=== PATIENT | female | born 1940 | race Caucasian/White ===

== ENCOUNTER 2017-03-28 09:09 | Inpatient (IN) | payer MEDICARE ==
--- NOTE | 2017-03-28 12:23 | History & Physical ---
History of Present Illness - Date Date of Service for History & Physical: 03/28/17 - History of Present Illness Admitting Diagnosis: S/P total right hip arthroplasty History of Present Illness: 76 y/o female with history of right hip degenerative arthritis underwent right total hip arthroplasty 03/24/17. Other significant medical history includes DM-2 , HTN, GERD, OA both hips. Will plan for right hip dressing and steri strips to remain in place until 14 days post-op (04/07/17) and DVT prophlaxis with TEDs and Lovenox 40mg daily x 3 weeks. Weight bear as tolerated. Intra- operative and post- operative course uneventful. No previous labs available for review at time of dictation. PT/OT consultation. Follow with orthopedic surgeon Dr Cervantes in 6 weeks. General - Cognitive Patterns Orientation: Oriented x3 - Communication Preferred Language?: Kazakh Contract Specialist Required: No Level of Education: High School Preferred Method of Learning: Seeing, Doing, Reading Comprehension Ability: No Impairment Able to Read: Yes Able to Write: Yes Select best description of speech pattern: Clear Speech Ability to express ideas and wants: Understood Understanding verbal content: Understands - Psychosocial Well-Being Usual Living Arrangement: Alone - Dental Status Unable to examine: No Broken or loosely fitting full or partial dentures: No No natural teeth or tooth fragment(s) (edentulous): No Abnormal mouth tissue (ulcers, masses, oral lesions, etc.): No Obvious or likely cavity or broken natural teeth: No Inflamed or bleeding gums or loose natural teeth: No Mouth/facial pain, discomfort or difficulty chewing: No - Nutrition Screening Poor oral intake > 1 week: No Unplanned weight loss in specified time frame: No Nutrition Support via tube feedings or parenteral nutrition: No Pressure Ulcer: No Significantly underweight define as BMI <18.5 kg/m2: No Albumin <2.5mg/dL: No Persistent nausea/vomiting/diarrhea >3 days: No Difficulty chewing/swallowing/mouth sores: No Admitting Diagnosis: No Nutrition Risk Score: Low Risk Past Medical History - SOCIAL HISTORY Smoking Status: Never smoker Drug use: None - SURGICAL HISTORY Past Surgical History: hysterectomy. tonsilectomy. cholecystectomy. 2 navel surgeries. incarcerated hernia repair - RESPIRATORY Hx Respiratory Disorders: No - CARDIOVASCULAR Hx Cardio Disorders: Yes Hx Hypertension: Yes - NEURO Hx Seizures: No - GI Hx GI Disorders: No - Hx Genitourinary Disorders: No - ENDOCRINE Hx Diabetes: Yes (oral medications) - MUSCULOSKELETAL Hx Musculoskeletal Disorders: Yes Hx Arthritis: Yes - PSYCH Hx Psych Problems: No - HEMATOLOGY/ONCOLOGY Hx Hematology/Oncology Disorders: No Family Medical History Family Hx Comment (NOT TO BE USED IN PLACE OF ITEMS BELOW): "old age" H&P Meds/Allergies - Allergies Allergies: Allergies Allergy/AdvReac Type Severity Reaction Status Date / Time hydrochlorothiazide Allergy Intermediate SWELLING Verified 09/02/15 10:41 OF THE FACE Penicillins Allergy Intermediate PT UNSURE Verified 08/22/15 16:04 OF REACTION Tetracyclines Allergy Intermediate ALTERED Verified 08/22/15 16:04 MENTAL STATUS lisinopril Allergy SWELLING Verified 08/22/15 16:04 OF THE LIPS pentazocine lactate Allergy "my Verified 08/22/15 16:04 [From [place]] eyeballs went around in my head" - Home Medications Previous Rx's Medication Instructions Recorded Furosemide [Lasix] 20 mg PO DAILY #30 tablet 09/26/15 Potassium Chloride [Klor-Con] 20 meq PO DAILY #30 tablet.sa 09/26/15 Metoprolol Succinate [Toprol Xl] 25 mg PO BID #60 tab.er.24h 09/27/15 Physical Exam - Vital Signs Vital Signs: Vital Signs - Last 24 Hrs Temp Pulse Resp BP 03/28/17 11:47 97.2 F L 61 18 145/68 Discharge Potential - Discharge Needs Community Services Used Prior to Admission: None Patient Discharge Plan Description: Return Home Plan - Swing Bed Certification Initial Certification Due: 03/28/17 14 Day Re-Cert Due: 04/11/17 44 Day Re-Cert Due: 05/11/17 74 Day Re-Cert Due: 06/10/17 - Detailed Diagnosis and Plan (1) Physical deconditioning Current Visit: Yes Status: Acute Base Code: R53.81 - OTHER MALAISE Comment : - s/p right hip total arthroplasty 03/24/17 - PT/OT eval and treat - right hip dressing until 14 days post-op - WBAT - [place] for pain (2) Primary osteoarthritis of right hip Current Visit: Yes Status: Acute Base Code: M16.11 - UNILATERAL PRIMARY OSTEOARTHRITIS, RIGHT HIP (3) Hypertension Current Visit: Yes Status: Acute Base Code: I10 - ESSENTIAL (PRIMARY) HYPERTENSION (4) Full code status Current Visit: Yes Status: Acute Base Code: Z78.9 - OTHER SPECIFIED HEALTH STATUS (5) Diabetes type 2, controlled Current Visit: Yes Status: Acute Base Code: E11.9 - TYPE 2 DIABETES MELLITUS WITHOUT COMPLICATIONS
[2017-03-28] MEDS ORDERED: ACETAMINOPHEN 500 MG TABLET PO PRN (12:51)
--- NOTE | 2017-03-28 13:53 | History & Physical ---
History of Present Illness - Date of Service Date of Service for History & Physical: 03/28/17 - History of Present Illness Admitting Diagnosis: S/P total right hip arthroplasty History of Present Illness: patient had right hip replacement at [facility] by Dr. Cervantes and is her for rehab. Review of Systems Reviewed: No additional complaints except as noted below Constitutional: Reports: As per HPI. Denies: Chills, Fever, Malaise, Night sweats, Weakness, Weight change Eyes: Reports: As per HPI. Denies: Eye discharge, Eye pain, Photophobia, Vision change ENT: Reports: As per HPI. Denies: Congestion, Dental pain, Ear pain, Epistaxis , Hearing loss, Throat pain Respiratory: Reports: As per HPI. Denies: Cough, Dyspnea, Hemoptysis, Stridor, Wheezes Cardiovascular: Reports: As per HPI. Denies: Arrhythmia, Chest pain, Dyspnea on exertion, Edema, Murmurs, Orthopnea, Palpitations, Paroxysmal nocturnal dyspnea, Rheumatic Fever, Syncope Endocrine: Reports: As per HPI. Denies: Fatigue, Heat or cold intolerance, Polydipsia, Polyuria Gastrointestinal: Reports: As per HPI. Denies: Abdominal pain, Constipation, Diarrhea, Hematemesis, Hematochezia, Melena, Nausea, Vomiting Genitourinary: Reports: As per HPI. Denies: Abnormal menses, Discharge, Dyspareunia, Dysuria, Frequency, Hematuria, Incontinence, Retention, Urgency Musculoskeletal: Reports: As per HPI. Denies: Arthralgia, Back pain, Gout, Joint swelling, Myalgia, Neck pain Skin: Reports: As per HPI. Denies: Bruising, Change in color, Change in hair/ nails, Lesions, Pruritus, Rash Neurological: Reports: As per HPI. Denies: Abnormal gait, Confusion, Headache, Numbness, Paresthesias, Seizure, Tingling, Tremors, Vertigo, Weakness Psychiatric: Reports: As per HPI. Denies: Anxiety, Auditory hallucinations, Depression, Homicidal thoughts, Suicidal thoughts, Visual hallucinations Hematological/Lymphatic: Reports: As per HPI. Denies: Anemia, Blood Clots, Easy bleeding, Easy bruising, Swollen glands Past Medical History - SOCIAL HISTORY Smoking Status: Never smoker Alcohol Use: None Drug Use: None - RESPIRATORY Hx Respiratory Disorders: No - CARDIOVASCULAR Hx Cardio Disorders: Yes Hx Hypertension: Yes - NEURO Hx Neuro Disorders: No Hx Seizures: No - GI Hx GI Disorders: No - Hx Genitourinary Disorders: No - ENDOCRINE Hx Endocrine Disorders: Yes Hx Diabetes: Yes (oral medications) - MUSCULOSKELETAL Hx Musculoskeletal Disorders: Yes Hx Arthritis: Yes - PSYCH Hx Psych Problems: No - HEMATOLOGY/ONCOLOGY Hx Hematology/Oncology Disorders: No Family Medical History Any Significant Family History?: No Family Hx Comment (NOT TO BE USED IN PLACE OF ITEMS BELOW): "old age" H&P Meds/Allergies - Allergies Allergies: Allergies Allergy/AdvReac Type Severity Reaction Status Date / Time Penicillins Allergy Intermediate PT UNSURE Verified 08/22/15 16:04 OF REACTION Tetracyclines Allergy Intermediate ALTERED Verified 08/22/15 16:04 MENTAL STATUS lisinopril Allergy SWELLING Verified 08/22/15 16:04 OF THE LIPS pentazocine lactate Allergy "my Verified 08/22/15 16:04 [From Talwin] eyeballs went around in my head" - Home Medications Previous Rx's Medication Instructions Recorded Furosemide [Lasix] 20 mg PO DAILY #30 tablet 09/26/15 Potassium Chloride [Klor-Con] 20 meq PO DAILY #30 tablet.sa 09/26/15 Metoprolol Succinate [Toprol Xl] 25 mg PO BID #60 tab.er.24h 09/27/15 - Active Medications Active Medications: Current Medications Acetaminophen (Tylenol 500mg Tab) 500 mg PO Q6H PRN PRN Reason: Pain - General Acetaminophen (Tylenol 500mg Tab) 1,000 mg PO Q6H PRN PRN Reason: Pain - General Atorvastatin Calcium (Lipitor) 10 mg PO 1730 [facility] Enoxaparin Sodium (Lovenox) 40 mg SQ DAILY [facility] Hydrochlorothiazide (Hctz 12.5mg) 12.5 mg PO DAILY [facility] Meloxicam (Mobic) 15 mg PO QAM [facility] Metformin HCl (Glucophage Xr) 500 mg PO DAILY [facility] Toprol Xl 50 Mg 1 each PO 1730 [facility] Physical Exam - Vital Signs Vital Signs: Vital Signs - Last 24 Hrs Temp Pulse Resp BP 03/28/17 11:47 97.2 F L 61 18 145/68 - General General Appearance: Alert, Oriented x3, Cooperative, No acute distress Limitations: No limitations - Head Head exam: Normal inspection Head exam detail: negative: Abrasion, Contusion - Eye Eye exam: Normal appearance, PERRL Pupils: Normal accommodation - ENT ENT exam: Normal exam, Mucous membranes moist, Normal external ear exam, Normal orophraynx, TM's normal bilaterally Ear exam: Normal external inspection. negative: External canal tenderness Nasal Exam: Normal inspection. negative: Discharge, Sinus tenderness Mouth exam: Normal external inspection, Tongue normal Teeth exam: Normal inspection. negative: Dental caries Throat exam: Normal inspection. negative: Tonsillar erythema, Tonsillar exudate - Neck Neck exam: Normal inspection, Full ROM. negative: Tenderness - Respiratory Respiratory exam: Normal lung sounds bilaterally. negative: Respiratory distress - Cardiovascular Cardiovascular Exam: Regular rate, Normal rhythm, Normal heart sounds Peripheral Pulses: 2+: Radial (R), Radial (L), Dorsalis Pedis (R), Dorsalis Pedis (L) - GI/Abdominal GI/Abdominal exam: Soft, Normal bowel sounds. negative: Tenderness - Rectal Rectal exam: Deferred - exam: Deferred - Extremities Extremities exam: Normal inspection, Full ROM, Normal capillary refill, Pedal edema (more on the surgical leg). negative: Tenderness - Back Back exam: Reports: Normal inspection, Full ROM. Denies: Muscle spasm, Rash noted, Tenderness - Neurological Neurological exam: Alert, Normal gait, Oriented X3, Reflexes normal - Psychiatric Psychiatric exam: Normal affect, Normal mood - Skin Skin exam: Dry, Intact, Normal color, Warm VTE H&P Assessment - Risk for VTE Risk for VTE: No Risk Level: Moderate Risk Assessment Date: 03/28/17 Risk Assessment Time: 13:51 VTE Orders Placed or Will Be Placed: Yes VTE Reason for No Prophylaxis: Not Indicated Plan - Inpatient Certification Inpatient Certification: Admit to inpatient care: Based on my medical assessment, after consideration of patient's risk factors (age, co-morbidities and patient presenting symptoms and acuity), I expect that this patient will remain in the hospital greater than or equal to two midnights and that the services needed warrant inpatient care because: Patient Risk Factors: [] Estimated length of stay: [] The patient may reasonably be expected to be discharged or transferred to a hospital within 96 hours after admission to [facility]. Services needed: [] Post hospital care (if known): [] I certify that my determination is in accordance with my understanding of Medicare requirements for reasonable and necessary inpatient services. - Detailed Diagnosis and Plan (1) Physical deconditioning Current Visit: Yes Status: Acute Base Code: R53.81 - OTHER MALAISE Priority: High (2) Diabetes type 2, controlled Current Visit: Yes Status: Acute Qualifiers: Diabetes mellitus complication status: without complication Diabetes mellitus intermediate frame tender insulin use: without nursing home use Qualified Code(s): E11.9 - Type 2 diabetes mellitus without complications Base Code: E11.9 - TYPE 2 DIABETES MELLITUS WITHOUT COMPLICATIONS Priority: Medium (3) Full code status Current Visit: Yes Status: Acute Base Code: Z78.9 - OTHER SPECIFIED HEALTH STATUS Priority: Medium (4) Hypertension Current Visit: Yes Status: Acute Base Code: I10 - ESSENTIAL (PRIMARY) HYPERTENSION Priority: Medium (5) Primary osteoarthritis of right hip Current Visit: Yes Status: Acute Base Code: M16.11 - UNILATERAL PRIMARY OSTEOARTHRITIS, RIGHT HIP Priority: Low
--- NOTE | 2017-03-28 14:35 | Rehab Evaluation ---
Patient Information - Patient Information Diagnosis: RHA Ordered Treatment: PT Evaluate and Treat Status: Initial Evaluation Past Medical/Surgical Hx: PAST MEDICAL/SURGICAL HISTORY Past Surgical History hysterectomy tonsilectomy cholecystectomy 2 navel surgeries incarcerated hernia repair TRHA PMH - Respiratory Hx Respiratory Disorders No PMH - Cardiovascular Hx Cardiovascular Disorders Yes Hx Hypertension Yes PMH - Neuro Hx Neurological Disorders No Hx Seizures No PMH - GI Hx Gastrointestinal Disorders No PMH - Hx Genitourinary Disorders No PMH - Endocrine Hx Endocrine Disorders Yes Hx Diabetes Yes: oral medications Hx Thyroid Disease No PMH - Musculoskeletal Hx Musculoskeletal Disorders Yes Hx Arthritis Yes PMH - Psych Hx Psychiatric Problems No PMH - Hematology/Oncology Hx Hematology/Oncology No Disorders Premorbid Status: Detail (The patient was ambulatory with 4 wheeled walker and independent with all mobility.) Social History: Detail (The patient lives in an apartment without stairs. The patient's bathroom is equipped with a walk in shower and high rise toilet. No grab bars are present. The patient has a 4 wheeled walker , a 3 wheeled walker , a sock aide , feed in worker.) Precautions: [place], Other (Total Hip Precautions) - Time With Patient Total Time Spent With Patient (Min): 30 Treatment Procedures: Detail (Initial Evaluation.) Subjective Information - Subjective Information Per Patient (The patient had no complaints of pain.) Objective Data - Mental Status Patient Orientation: Oriented x3 - Visual Perception Appears within normal limits for therapeutic activities - ROM Not within normal limits (The patient's L LE strength was WNL. The patient's R LE AROM was within AN[place]IET[place].) - Strength/Tone Not within normal limits (The patient's L LE strength was generally 4 to 4+/5, R LE was not formally tested secondary to status post surgery, however patient' s strength was at least antigravity.) - Bed Mobility Needs Assist (The patient's bed mobility was not assessed.) - Transfers Independent (The patient was independent with sit to and from stand transfer.) - Balance Balance Sitting: Good Balance Standing: Good - Sensation Intact - Gait Detail (The patient ambulated with wheeled walker a distance of 80 feet x 1, WBAT on the R LE with supervision for safety only.) Therapy Assessment - Therapy Assessment Detail (The patient was independent with transfers and requires supervision for safety with ambulation only. The patient exhibits decreased LE strength. The patient has limited PT needs. Will instruct patient in LE strengthening exercises and increase ambulation endurance.) Problem List - Problem List Physical Therapy Problem List: Detail (1) Decreased R LE strength 2) Supervision with ambulation 3) Decreased ability to complete sustained physical activity.) Goals - Goals Physical Therapy Goals: 1) The patient will be independent with HEP of LE exercises. 2) Assess bed mobility. 3) The patient will ambulate independently with wheeled walker a distance of 150 feet plus. 4) The patient will be independent with bed mobility and all transfers. Prognosis - Prognosis Good Plan - Plan Physical Therapy Plan: PT M-F 3 to 4 times a week for gait training, transfer training and instruction in LE strengthening exercises.
--- NOTE | 2017-03-28 14:51 | Rehab Evaluation ---
Patient Information - Patient Information Diagnosis: s/p R ANTONIETTA Ordered Treatment: OT Evaluate and Treat Status: Initial Evaluation Surgery: Yes (Right total hip arthroplasty) Past Medical/Surgical Hx: PAST MEDICAL/SURGICAL HISTORY Past Surgical History hysterectomy tonsilectomy cholecystectomy 2 navel surgeries incarcerated hernia repair TRHA PMH - Respiratory Hx Respiratory Disorders No PMH - Cardiovascular Hx Cardiovascular Disorders Yes Hx Hypertension Yes PMH - Neuro Hx Neurological Disorders No Hx Seizures No PMH - GI Hx Gastrointestinal Disorders No PMH - Hx Genitourinary Disorders No PMH - Endocrine Hx Endocrine Disorders Yes Hx Diabetes Yes: oral medications Hx Thyroid Disease No PMH - Musculoskeletal Hx Musculoskeletal Disorders Yes Hx Arthritis Yes PMH - Psych Hx Psychiatric Problems No PMH - Hematology/Oncology Hx Hematology/Oncology No Disorders Premorbid Status: Detail (The patient lives alone in an apartment, no steps at the entrance. She has a walk in shower, no grab bars, and she stands to shower. She has a high rise toilet, no grab bars. She was Ind with all ADLs and IADLs. The patient was ambulatory with 4 wheeled walker and independent with all mobility. She has a 4 wheeled walker, 3 wheeled walker, covering machine operator and sock aid.) Social History: Detail (Supportive friend.) Precautions: [place], [place], Other (Total hip precautions.) - Time With Patient Total Time Spent With Patient (Min): 40 Treatment Procedures: Detail (OT eval low complexity) Subjective Information - Subjective Information Per Patient Objective Data - Pain Pain Present: No (Pt reports no pain currently.) - Mental Status Patient Orientation: Oriented x3 - Visual Perception Appears within normal limits for therapeutic activities - ROM Within normal limits (Ramone UE AROM grossly within functional limits, slightly decreased shoulder flexion bilaterally although functional for patients level of activity.) - Strength/Tone Within normal limits (Ramone UE MMT 4/5 throughout.) - Coordination Appears within normal limits for therapeutic activities - Transfers Needs Assist (Ind with sit to stand from raised chair to walker, min assist for sit to stand from toilet using grab bar.) - Balance Balance Sitting: Good Balance Standing: Good - Sensation Intact - Gait Detail (Pt ambulating in room with 2 wheeled walker and SBA.) - ADL's/IADL's Detail (Pt reports she is Ind with all upper body dressing, she is unable to complete lower body dressing or complete toileting hygiene Indly. Simulated an alternate toileting hygiene method, pt unsure but willing to try.) Therapy Assessment - Therapy Assessment Detail (Pt unable to complete toileting or lower body ADLs Indly. Decreased Ind with showering.) Problem List - Problem List Occupational Therapy Problem List: Detail (1. Decreased Ind with toileting hygiene. 2. Decreased Ind with lower body dressing. 3. Decreased Ind with showering.) Goals - Goals Occupational Therapy Goals: 1. Pt will be safe and Ind with showering in sitting or standing. 2. Pt will be Ind with lower body dressing with use of adaptive equipment, while maintaining total hip precautions. 3. Pt will be Ind with toileting hygiene with use of adaptive equipment as needed. Prognosis - Prognosis Good Plan - Plan Occupational Therapy Plan: OT 2-4 days per week to address LE ADLs, toileting and functional mobility to allow safe and Ind return home.
[2017-03-28] MEDS: ACETAMINOPHEN 500 MG TABLET PO PRN (17:19)
[2017-03-28] MEDS: ATORVASTATIN 20 MG TABLET PO SCH (17:19)
[2017-03-28] MEDS: TOPROL 50 MG PO SCH (17:20)
[2017-03-29] MEDS: ACETAMINOPHEN 500 MG TABLET PO PRN ×2 (01:30→10:13)
[2017-03-29 06:55] LABS: BASO % 0.4 % (0-6); GRAN % 63.4 % (47-80); HEMOGLOBIN 11.3 gm/dl (11.6-16.0); LYMPH % 20.3 % (16-45); MEAN CELL VOLUME 96.7 fl (81-97); MEAN CORPUSCULAR HEMOGLOBIN 31.2 pg (27-33); MEAN CORPUSCULAR HGB CONC 32.3 g/dl (32-36); MEAN PLATELET VOLUME 10.6 fl (7.4-10.4); MONO % 8.9 % (0-9); PLATELET COUNT 235 K/uL (130-400); RED BLOOD COUNT 3.62 M/uL (3.80-5.40); RED CELL DISTRIBUTION WIDTH 12.7 % (11.5-14.5); WHITE BLOOD COUNT W/O DIFF 5.4 K/uL (4.2-12.2)
[2017-03-29 07:06] LABS: BLOOD UREA NITROGEN 15 mg/dL (8-23); CREATININE 0.4 mg/dL (0.5-0.9); EST GLOMERULAR FILTRATION RATE > 60 mL/min; GLUCOSE,RANDOM 125 mg/dL (74-109)
[2017-03-29] MEDS: MULTIVITAMINS/MINERALS TABLET PO SCH (09:17)
[2017-03-29] MEDS: HYDROCHLOROTHIAZIDE 12.5 MG CAPSULE PO SCH (09:18)
[2017-03-29] MEDS: MELOXICAM 7.5 MG TABLET PO SCH (09:18)
[2017-03-29] MEDS: METFORMIN ER HCL 500 MG TAB.ER.24H PO SCH (09:18)
[2017-03-29] MEDS: ENOXAPARIN 40 MG/0.4 ML SYR SQ SCH (09:18)
--- NOTE | 2017-03-29 11:46 | Occupational Therapy Tx Note ---
Occupational Therapy Tx Note - Treatment Note Tolerated: Good Total Time Spent With Patient: 30 (ADL) Occupational Therapy Treatment Note: Detail (S: Pt in bathroom with nursing. O : Pt completed toileting on raised commode chair using modified technique to perform toileting hygiene. Sit to stand from commode and amb to sink using 2 wheeled walker. Pt performed cleaning of evita area/buttocks with wash cloth Indly. Pt able to pull up pants Indly. Amb to chair with 2 wheeled walker. Pt educated re: use of sand drier, sock aid and long shoe horn for LE dressing. Pt able to doff slippers and don socks and shoes with adaptive equipment while maintaining [place] precautions with min assist to pull socks up over calf and to pull heel of shoe onto foot. Sit to stand and amb in hallway with 2 wheeled walker Indly. A: Min assist for LE dressing, will continue training with adaptive equipment. Pt unsure of Ind with toileting hygiene but making significant improvements.) Occupational Therapy Problem List: Detail (1. Decreased Ind with toileting hygiene. 2. Decreased Ind with lower body dressing. 3. Decreased Ind with showering.) Occupational Therapy Goals: 1. Pt will be safe and Ind with showering in sitting or standing. 2. Pt will be Ind with lower body dressing with use of adaptive equipment, while maintaining total hip precautions. 3. Pt will be Ind with toileting hygiene with use of adaptive equipment as needed. Prognosis: Good Occupational Therapy Plan: OT 2-4 days per week to address LE ADLs, toileting and functional mobility to allow safe and Ind return home.
[2017-03-29] MEDS: ATORVASTATIN 20 MG TABLET PO SCH (17:10)
[2017-03-29] MEDS: TOPROL 50 MG PO SCH (17:11)
--- NOTE | 2017-03-29 17:14 | Physical Therapy Tx Note ---
Physical Therapy Tx Note - Treatment Note Tolerated: Good Total Time Spent With Patient: 25 Physical Therapy Tx Note: Detail (The patient was up in chair when PT arrived. The patient ambulated 124 feet x 1 with wheeled walker and WBAT on R LE. The patient required occasional verbal cues to keep R LE straight. The patient was independent with bed mobility. The patient completed LE strengthening exercises supine including: ankle pumps, quad sets, gluteal sets, SLR, heel slides hip abduction supine and adductor squeezes all x 10 reps. The patient was told she could ambulate in hallway independently, however she was reluctant to do so.) Physical Therapy Problem List: Detail (1) Decreased R LE strength 2) Supervision with ambulation 3) Decreased ability to complete sustained physical activity.) Physical Therapy Goals: 1) The patient will be independent with HEP of LE exercises. 2) Assess bed mobility (Goal Met). 3) The patient will ambulate independently with wheeled walker a distance of 150 feet plus. 4) The patient will be independent with bed mobility and all transfers.(Goal Met) Physical Therapy Plan: PT M-F 3 to 4 times a week for gait training, transfer training and instruction in LE strengthening exercises.
[2017-03-30] MEDS: ACETAMINOPHEN 500 MG TABLET PO PRN ×3 (00:25→20:42)
[2017-03-30] MEDS: METFORMIN ER HCL 500 MG TAB.ER.24H PO SCH (09:07)
[2017-03-30] MEDS: MULTIVITAMINS/MINERALS TABLET PO SCH (09:07)
[2017-03-30] MEDS: HYDROCHLOROTHIAZIDE 12.5 MG CAPSULE PO SCH (09:07)
[2017-03-30] MEDS: ENOXAPARIN 40 MG/0.4 ML SYR SQ SCH (09:07)
[2017-03-30] MEDS: MELOXICAM 7.5 MG TABLET PO SCH (09:07)
--- NOTE | 2017-03-30 11:26 | Physical Therapy Tx Note ---
Physical Therapy Tx Note - Treatment Note Tolerated: Good Total Time Spent With Patient: 30 Physical Therapy Tx Note: Detail (Patient was seated in chair sleeping upon PACKAGE HANDLER arrival. Patient was easily awoken and agreed to treatment. Patient states no complaints of pain in right hip. Patient transferred sit to and from stand independently. Patient ambulated 362 feet with wheeled walker SBA x1. Patient performed the following exercises x10 reps each: seated hip flexion, seated isometric hip abduction, isometric hip adduction, seated heel raises, seated toe raises, abdominal isometrics, glut squeezes, seated hamstring sets, and LAQ. Patient tolerated treatment well. Patient reports being fatigued after treatment. Patient was left seated in chair with call light within reach.) Physical Therapy Problem List: Detail (1) Decreased R LE strength 2) Supervision with ambulation 3) Decreased ability to complete sustained physical activity.) Physical Therapy Goals: 1) The patient will be independent with HEP of LE exercises. 2) Assess bed mobility (Goal Met). 3) The patient will ambulate independently with wheeled walker a distance of 150 feet plus. 4) The patient will be independent with bed mobility and all transfers.(Goal Met) Prognosis: Good Physical Therapy Plan: PT M-F 3 to 4 times a week for gait training, transfer training and instruction in LE strengthening exercises.
--- NOTE | 2017-03-30 15:19 | Occupational Therapy Tx Note ---
Occupational Therapy Tx Note - Treatment Note Tolerated: Good Total Time Spent With Patient: 60 Occupational Therapy Treatment Note: Detail (Pt sitting upon arrival with pt's friend in room. Discussed, showed, and demonstrated use of waterproofing supervisor, sock aid, LH shoe horn, and LH sponge. With much encouragement, pt donned/doffed pants using waterproofing supervisor 3x independently. Pt requested help at certain times but was encouraged to do it independently and was able to complete all LB drsg tasks without any assistance. Pt independent with sock aid use to don/doff socks. Pt verbalized understanding of LH sponge use for LB bathing. Pt trialed LH shoe horn but due to limited hip ROM and decreased strength pt unable to don/doff shoes independently. Pt was able to don/doff pt's friend shoes independently and states that she will order that style of shoe for home use. Pt frustrated with length of time for drsg using equipment but able to complete all tasks independently. Pt will be purchasing waterproofing supervisor, sock aid, and LH sponge. She maintained all hip precautions during drsg.) Occupational Therapy Problem List: Detail (1. Decreased Ind with toileting hygiene. 2. Decreased Ind with lower body dressing. 3. Decreased Ind with showering.) Occupational Therapy Goals: 1. Pt will be safe and Ind with showering in sitting or standing. 2. Pt will be Ind with lower body dressing with use of adaptive equipment, while maintaining total hip precautions. 3. Pt will be Ind with toileting hygiene with use of adaptive equipment as needed. Prognosis: Good Occupational Therapy Plan: OT 2-4 days per week to address LE ADLs, toileting and functional mobility to allow safe and Ind return home.
[2017-03-30] MEDS: ATORVASTATIN 20 MG TABLET PO SCH (17:20)
[2017-03-30] MEDS: TOPROL 50 MG PO SCH (17:21)
[2017-03-31] MEDS: METFORMIN ER HCL 500 MG TAB.ER.24H PO SCH ×2 (09:46→12:31)
[2017-03-31] MEDS: HYDROCHLOROTHIAZIDE 12.5 MG CAPSULE PO SCH (09:47)
[2017-03-31] MEDS: MELOXICAM 7.5 MG TABLET PO SCH (09:47)
[2017-03-31] MEDS: MULTIVITAMINS/MINERALS TABLET PO SCH (09:47)
[2017-03-31] MEDS: ENOXAPARIN 40 MG/0.4 ML SYR SQ SCH (09:48)
--- NOTE | 2017-03-31 11:19 | Physical Therapy Tx Note ---
Physical Therapy Tx Note - Treatment Note Tolerated: Good Total Time Spent With Patient: 45 Physical Therapy Tx Note: Detail (Patient states no new complaints. Patient transferred sit to and from stand independently. Patient ambulated 397 feet with wheeled walker SBA x1. Patient performed the following exercises x10 reps each: standing heel raises, standing toe raises, standing hip abduction, standing hip flexion, standing hip extension, standing hamstring curls, LAQ, seated hip abduction with red theraband, isometric hip adduction, glut squeezes , and abdominal isometrics. Patient tolerated treatment well. Patient required seated rest break after ambulation and with standing exercises. Patient reports fatigued after treatment. Patient was left seated in chair with call light within reach.) Physical Therapy Problem List: Detail (1) Decreased R LE strength 2) Supervision with ambulation 3) Decreased ability to complete sustained physical activity.) Physical Therapy Goals: 1) The patient will be independent with HEP of LE exercises. 2) Assess bed mobility (Goal Met). 3) The patient will ambulate independently with wheeled walker a distance of 150 feet plus. 4) The patient will be independent with bed mobility and all transfers.(Goal Met) Prognosis: Good Physical Therapy Plan: PT M-F 3 to 4 times a week for gait training, transfer training and instruction in LE strengthening exercises.
[2017-03-31] MEDS: ACETAMINOPHEN 500 MG TABLET PO PRN ×2 (12:33→20:17)
--- NOTE | 2017-03-31 13:01 | Discharge Summary ---
Providers Discharge Summary Date: 03/31/17 Date of admission: 03/28/17 11:34 Expected Date of Discharge: 04/01/17 Attending physician: Lamin Mclain Primary care physician: Ismael Griffiths Physical Exam - Vital Signs Vital Signs: Vital Signs - Last 24 Hrs Temp Pulse Resp BP BP Pulse Ox 03/31/17 08:00 98.8 F 59 L 16 133/72 95 03/30/17 20:00 97.9 F 72 18 125/78 95 - General General Appearance: Alert, Oriented x3, Cooperative, No acute distress Limitations: No limitations - Head Head exam: Normal inspection Head exam detail: negative: Abrasion, Contusion - Eye Eye exam: Normal appearance, PERRL Pupils: Normal accommodation - ENT ENT exam: Normal exam, Mucous membranes moist, Normal external ear exam, Normal orophraynx, TM's normal bilaterally Ear exam: Normal external inspection. negative: External canal tenderness Nasal Exam: Normal inspection. negative: Discharge, Sinus tenderness Mouth exam: Normal external inspection, Tongue normal Teeth exam: Normal inspection. negative: Dental caries Throat exam: Normal inspection. negative: Tonsillar erythema, Tonsillar exudate - Neck Neck exam: Normal inspection, Full ROM. negative: Tenderness - Respiratory Respiratory exam: Normal lung sounds bilaterally. negative: Respiratory distress - Cardiovascular Cardiovascular Exam: Regular rate, Normal rhythm, Normal heart sounds Peripheral Pulses: 2+: Radial (R), Radial (L), Dorsalis Pedis (R), Dorsalis Pedis (L) - GI/Abdominal GI/Abdominal exam: Soft, Normal bowel sounds. negative: Tenderness - Rectal Rectal exam: Deferred - exam: Deferred - Extremities Extremities exam: Normal inspection, Full ROM, Normal capillary refill, Pedal edema (more on the surgical leg). negative: Tenderness - Back Back exam: Reports: Normal inspection, Full ROM. Denies: Muscle spasm, Rash noted, Tenderness - Neurological Neurological exam: Alert, Normal gait, Oriented X3, Reflexes normal - Psychiatric Psychiatric exam: Normal affect, Normal mood - Skin Skin exam: Dry, Intact, Normal color, Warm Hospitalization - Hospitalization Admission Diagnosis: S/P total right hip arthroplasty - Problem List (1) Physical deconditioning Current Visit: Yes Status: Acute Base Code: R53.81 - OTHER MALAISE (2) Diabetes type 2, controlled Current Visit: Yes Status: Acute Discharge Diagnosis: Diabetes mellitus complication status: without complication Diabetes mellitus halfway insulin use: without terminal worker use Qualified Code(s): E11.9 - Type 2 diabetes mellitus without complications Base Code: E11.9 - TYPE 2 DIABETES MELLITUS WITHOUT COMPLICATIONS (3) Full code status Current Visit: Yes Status: Acute Base Code: Z78.9 - OTHER SPECIFIED HEALTH STATUS (4) Hypertension Current Visit: Yes Status: Acute Base Code: I10 - ESSENTIAL (PRIMARY) HYPERTENSION (5) Primary osteoarthritis of right hip Current Visit: Yes Status: Acute Base Code: M16.11 - UNILATERAL PRIMARY OSTEOARTHRITIS, RIGHT HIP - Hospitalization Course Disposition: Home, Self-Care Reason For Discharge/Transfer: Medical Stability Hospital Course: Patient gradually got stronger and qualifies for going home. lovenox 40 mg sq times 21 days last day is apr 16 Abnormal Labs: Abnormal Lab Results 03/29/17 03/29/17 03/30/17 Range/Units 06:35 06:35 07:35 RBC 3.62 L (3.80-5.40) M/uL Hgb 11.3 L (11.6-16.0) gm/dl MPV 10.6 H (7.4-10.4) fl Eosinophils % 7.0 H (0-6) % Carbon Dioxide 31.0 H (22-29) mmol/L Creatinine 0.4 L (0.5-0.9) mg/dL POC Glucose 117 H (70-110) mg/dL Random Glucose 125 H (74-109) mg/dL Calcium 8.7 L (8.8-10.2) mg/dL 03/31/17 Range/Units 07:50 RBC (3.80-5.40) M/uL Hgb (11.6-16.0) gm/dl MPV (7.4-10.4) fl Eosinophils % (0-6) % Carbon Dioxide (22-29) mmol/L Creatinine (0.5-0.9) mg/dL POC Glucose 112 H (70-110) mg/dL Random Glucose (74-109) mg/dL Calcium (8.8-10.2) mg/dL Condition at Discharge: (1) Good Discharge Diagnosis: deconditioning from right hip replacement surgery. Diabetes type two. hypertension. hyperchol. osreoarthritis of right hip Discharge Medications - Discharge Medications Prescriptions: Enoxaparin Sodium [Lovenox] 40 mg SQ DAILY #16 syr Hydrochlorothiazide [Hctz 12.5MG] 12.5 mg PO DAILY #30 cap Meloxicam [Mobic] 15 mg PO DAILY #30 tab Potassium Chloride 10 meq PO DAILY #30 tablet.er Home Medications: Ambulatory Orders Metformin HCl [Metformin HCl ER] 500 mg PO DAILYAC 04/14/15 [Last Taken 1 Day Ago ~08/21/15] Metoprolol Succinate [Toprol Xl] 25 mg PO BIDAC tab 04/14/15 [Last Taken 1 Day Ago ~08/21/15] Simvastatin 10 mg PO QPM tab 04/14/15 [Last Taken 1 Day Ago ~08/21/15] Multivitamin [Multi-Vitamin Daily] 1 each PO QPM 08/22/15 [Last Taken 1 Day Ago ~08/21/15] Metoprolol Succinate [Toprol Xl] 25 mg PO BID #60 tab.er.24h 09/27/15 [Last Taken Unknown] Acetaminophen [Tylenol 500Mg Tab] 1,000 mg PO Q6H PRN tablet 03/31/17 [Last Taken Unknown] Enoxaparin Sodium [Lovenox] 40 mg SQ DAILY #16 syr 03/31/17 [Last Taken Unknown] Hydrochlorothiazide [Hctz 12.5MG] 12.5 mg PO DAILY #30 cap 03/31/17 [Last Taken Unknown] Meloxicam [Mobic] 15 mg PO DAILY #30 tab 03/31/17 [Last Taken Unknown] Potassium Chloride 10 meq PO DAILY #30 tablet.er 03/31/17 [Last Taken Unknown] Discharge Plan - Discharge Instructions Activity at Discharge: Increase Activity as Tolerated Diet at Discharge: Diabetic Diet Additional Instructions: Follow up with Dr. Cervantes as scheduled on TueMay 06 at 1:45PM follow up with Dr Griffiths in 4 weeks Quality Measures - Quality Measures Quality Measures: Advance Directives, Documentation of Current Medications in Medical Record, Elder Maltreatment Screen and Follow-Up Plan, Screening for High Blood Pressure and F/U Documented - Current Medications Quality Measure: Measure #130: Documentation of Current Medications Documentation of Current Medications: <Current Medications Documented/Reviewed> [G8427] - Blood Pressure Screening Quality Measure: Screening for High Blood Pressure and Follow-Up Documented Does Patient Have Any of the Following: Active Dx of HTN Blood Pressure Classification: Normal BP Reading Systolic Measurement: 115 Diastolic Measurement: 65 Screening for High Blood Pressure: Patient Exclusion, Hx of HTN [G9744] - Advance Directives Quality Measure: Measure #47: Care Plan Advance Directives Established: Yes Advance Directives Information Provided To Patient: No Advance Directives on File: Yes Living Will: No Power of Business Controller: Yes Power of Business Controller Name: KATTY YEN Advance Care Planning: <Care Plan/Decision Maker Documented; Discussed & Documented> [[id number]] - Elder Abuse Suspicion Index Screening: Elder Abuse Suspicion Index Screening Rely on people for bathing, dressing, shopping, banking, etc: No Prevented from getting food, clothes, medication, etc: No Made to feel shamed or threatened by someone: No Forced to sign papers or use money against will: No Feel afraid, touched in ways not wanted or hurt physically: No Poor eye contact, withdrawn, malnourished, cuts or bruises: No Screening Result: Negative result EASI Reference Information: Deny RICO, Pancho C, Yahaira D, Yanet Morales.Development and validation of a tool to assist physicians identification of elder abuse: The Elder Abuse Suspicion Index (EASI ). Journal of Elder Abuse and Neglect, 2008; 20 (3): 276-300. - Elder Maltreatment Screen Quality Measures: Elder Maltreatment Screen and Follow-Up Plan Elder Maltreatment Screen: <Negative, No Follow-Up Plan Required> [G8734]
--- NOTE | 2017-03-31 14:30 | Physical Therapy Tx Note ---
Physical Therapy Tx Note - Treatment Note Tolerated: Good Total Time Spent With Patient: 30 Physical Therapy Tx Note: Detail (Patient states tired this afternoon. Patient transferred sit to and from stand independently. Patient ambulated 10 feet x2 with wheeled walker SBA x1. Patient performed the following exercises using hallway railing: marching x52 feet, sidestepping x26 feet, and walking backwards x52 feet. Patient transferred sit to and from stand independently. Patient performed the following balance exercises x30 seconds: feet together on foam, feet together with eyes closed, feet together looking up and down on foam , feet together looking side to side on foam, feet together with pertubations on foam, and stride stance on floor. Patient tolerated treatment well. Patient displays decreased balance with feet together eyes closed, feet together with looking up and down, feet together with looking side to side, feet together with pertubations, and stride stance. Patient required several seated rest breaks with standing balance exercises. Patient reports right hip sore after treatment. Patient was left seated in chair with call light within reach.) Physical Therapy Problem List: Detail (1) Decreased R LE strength 2) Supervision with ambulation 3) Decreased ability to complete sustained physical activity.) Physical Therapy Goals: 1) The patient will be independent with HEP of LE exercises. 2) Assess bed mobility (Goal Met). 3) The patient will ambulate independently with wheeled walker a distance of 150 feet plus. 4) The patient will be independent with bed mobility and all transfers.(Goal Met) Prognosis: Good Physical Therapy Plan: PT M-F 3 to 4 times a week for gait training, transfer training and instruction in LE strengthening exercises.
[2017-03-31] MEDS: ATORVASTATIN 20 MG TABLET PO SCH (17:49)
[2017-03-31] MEDS: TOPROL 50 MG PO SCH (17:49)
[2017-04-01] MEDS: METFORMIN ER HCL 500 MG TAB.ER.24H PO SCH (08:05)
[2017-04-01] MEDS: HYDROCHLOROTHIAZIDE 12.5 MG CAPSULE PO SCH (10:04)
[2017-04-01] MEDS: MULTIVITAMINS/MINERALS TABLET PO SCH (10:04)
[2017-04-01] MEDS: ENOXAPARIN 40 MG/0.4 ML SYR SQ SCH (10:05)
[2017-04-01] MEDS: MELOXICAM 7.5 MG TABLET PO SCH (10:05)
[2017-04-01] MEDS: ACETAMINOPHEN 500 MG TABLET PO PRN (12:51)
== END 2017-04-01 14:14 | disposition home or self-care (01) | DRG 948 ==
LOC: MEDSURG 11:34 → UNDOADMIN 11:34
PROVIDERS: ADMIT Internal Medicine; ATTEND Emergency Medicine
DX: R53.81 Other malaise (principal); E11.9 Type 2 diabetes mellitus without complications; Z79.84 Long term (current) use of oral hypoglycemic drugs; I10 Essential (primary) hypertension; M16.11 Unilateral primary osteoarthritis, right hip
CPT/HCPCS: 36416; 80048; 82948; 85025; 97110; 97165; 97530; 97535; 99306; 99309; 99316; J1650

== ENCOUNTER 2017-12-14 13:11 | Inpatient (IN) | payer MEDICARE ==
[2017-12-15] MEDS ORDERED: TRAMADOL HCL 50 MG TABLET PO PRN (14:31)
[2017-12-15] MEDS ORDERED: AL HYDROX/MAG HYDROX 30ML UD PO PRN (18:56)
[2017-12-15] MEDS: ACETAMINOPHEN 500 MG TABLET PO PRN (19:04)
[2017-12-15] MEDS: ATORVASTATIN 20 MG TABLET PO SCH ×2 (19:05→22:14)
[2017-12-15] MEDS: METOPROLOL SUCC 50 MG TABLET PO SCH ×2 (19:06→22:13)
--- NOTE | 2017-12-15 21:05 | History & Physical ---
History of Present Illness - Date Date of Service for History & Physical: 12/15/17 - History of Present Illness Admitting Diagnosis: LTKA History of Present Illness: Patient had a left knee replacement at [facility] by Dr. Cervantes and admitted to swing bed at [facility] for rehab, Patient primary physician is Dr Griffiths and patient requested my services.PMHDM type 2 ,hypercholesterolemia,Hypertension,GERD, osteoarthritis. General - Cognitive Patterns Speech: Normal Thought Process: Intact Thought Content: Normal Orientation: Oriented x3 Brief Interview for Mental Status Score: 15 - Communication Preferred Language?: Irish Marine Structural Welder Required: No Comprehension Ability: No Impairment Able to Read: Yes Able to Write: Yes Select best description of speech pattern: Clear Speech Ability to express ideas and wants: Understood Understanding verbal content: Understands - Mood and Behavior Patterns Appearance: Well Groomed Mood: Normal Attitude: Cooperative Motor Activity: Calm Affect: Appropriate Hallucinations: Denies - Patient Health Questionnaire (PHQ-9) Affect of above symptoms on daily life: Not difficult at all - Psychosocial Well-Being Usual Living Arrangement: Alone Current and Past Employment History: Retired Jewish: Unknown Verbalizes Interest in Activities During Stay: Yes Personality: Extroverted States they do not want to participate in group activities: No Patient Involved in the Community: Yes Patient Drives: No (sister drives) - Physical Functioning Activity Level: Up as tolerated, Up with assist x1 Turning: Self ad mena ROM Ability: Limited/Compromised Assistive Devices: 2 Wheel Walker, Walker, Wheel Chair Ambulation Ability: Needs Assist Bed Mobility: Independent Transfer Ability: Needs Assist Bathing Ability: Independent Personal Hygiene: Independent Dressing Ability: Needs Assist Eating (Feeding) Ability: Independent Toileting Ability: Needs Assist Administer Own Medication: Independent - Continence Bowel Pattern: Diarrhea Bladder Pattern: Normal - Dental Status Unable to examine: No Broken or loosely fitting full or partial dentures: No No natural teeth or tooth fragment(s) (edentulous): No Abnormal mouth tissue (ulcers, masses, oral lesions, etc.): No Obvious or likely cavity or broken natural teeth: No Inflamed or bleeding gums or loose natural teeth: No Mouth/facial pain, discomfort or difficulty chewing: No - Nutrition Screening Poor oral intake > 1 week: No Unplanned weight loss in specified time frame: No Nutrition Support via tube feedings or parenteral nutrition: No Pressure Ulcer: No Significantly underweight define as BMI <18.5 kg/m2: No Albumin <2.5mg/dL: No Persistent nausea/vomiting/diarrhea >3 days: No Difficulty chewing/swallowing/mouth sores: No Admitting Diagnosis: No Nutrition Risk Score: Low Risk Review of Systems Reviewed: No additional complaints except as noted below Constitutional: Reports: As per HPI. Denies: Chills, Fever, Malaise, Night sweats, Weakness, Weight change Eyes: Reports: As per HPI. Denies: Eye discharge, Eye pain, Photophobia, Vision change ENT: Reports: As per HPI. Denies: Congestion, Dental pain, Ear pain, Epistaxis , Hearing loss, Throat pain Respiratory: Reports: As per HPI. Denies: Cough, Dyspnea, Hemoptysis, Stridor, Wheezes Cardiovascular: Reports: As per HPI. Denies: Arrhythmia, Chest pain, Dyspnea on exertion, Edema, Murmurs, Orthopnea, Palpitations, Paroxysmal nocturnal dyspnea, Rheumatic Fever, Syncope Endocrine: Reports: As per HPI. Denies: Fatigue, Heat or cold intolerance, Polydipsia, Polyuria Gastrointestinal: Reports: As per HPI. Denies: Abdominal pain, Constipation, Diarrhea, Hematemesis, Hematochezia, Melena, Nausea, Vomiting Genitourinary: Reports: As per HPI. Denies: Abnormal menses, Discharge, Dyspareunia, Dysuria, Frequency, Hematuria, Incontinence, Retention, Urgency Musculoskeletal: Reports: As per HPI, Other (left knee replacement). Denies: Arthralgia, Back pain, Gout, Joint swelling, Myalgia, Neck pain Skin: Reports: As per HPI. Denies: Bruising, Change in color, Change in hair/ nails, Lesions, Pruritus, Rash Neurological: Reports: As per HPI. Denies: Abnormal gait, Confusion, Headache, Numbness, Paresthesias, Seizure, Tingling, Tremors, Vertigo, Weakness Psychiatric: Reports: As per HPI. Denies: Anxiety, Auditory hallucinations, Depression, Homicidal thoughts, Suicidal thoughts, Visual hallucinations Hematological/Lymphatic: Reports: As per HPI. Denies: Anemia, Blood Clots, Easy bleeding, Easy bruising, Swollen glands Past Medical History - SOCIAL HISTORY Smoking Status: Never smoker Alcohol Use: None Drug use: None - SURGICAL HISTORY Past Surgical History: hysterectomy. tonsilectomy. cholecystectomy. 2 navel surgeries. incarcerated hernia repair. [facility] - RESPIRATORY Hx Respiratory Disorders: No - CARDIOVASCULAR Hx Cardio Disorders: Yes Hx Hypertension: Yes - NEURO Hx Seizures: No - GI Hx GI Disorders: No - Hx Genitourinary Disorders: No - ENDOCRINE Hx Endocrine Disorders: Yes Hx Diabetes: Yes (oral medications) - MUSCULOSKELETAL Hx Musculoskeletal Disorders: Yes Hx Arthritis: Yes - PSYCH Hx Psych Problems: No - HEMATOLOGY/ONCOLOGY Hx Hematology/Oncology Disorders: No Family Medical History Any Significant Family History?: No Family Hx Comment (NOT TO BE USED IN PLACE OF ITEMS BELOW): "old age" H&P Meds/Allergies - Allergies Allergies: Allergies Allergy/AdvReac Type Severity Reaction Status Date / Time Penicillins Allergy Intermediate PT UNSURE Verified 08/22/15 16:04 OF REACTION Tetracyclines Allergy Intermediate ALTERED Verified 08/22/15 16:04 MENTAL STATUS lisinopril Allergy SWELLING Verified 08/22/15 16:04 OF THE LIPS pentazocine lactate Allergy "my Verified 08/22/15 16:04 [From Talwin] eyeballs went around in my head" sulfamethoxazole Allergy Unverified 04/28/17 12:10 [From Bactrim] trimethoprim [From Bactrim] Allergy Unverified 04/28/17 12:10 - Home Medications Previous Rx's Medication Instructions Recorded Hydrochlorothiazide [Hctz 12.5MG] 12.5 mg PO DAILY #30 cap 03/31/17 Potassium Chloride 10 meq PO DAILY #30 tablet.er 03/31/17 - Active Medications Active Medications: Current Medications Acetaminophen (Tylenol 500mg Tab) 1,000 mg PO Q6H PRN PRN Reason: PAIN - MILD (1-4) Last Admin: 12/15/17 19:04 Dose: 1,000 mg Al Hydroxide/Mg Hydroxide (Maalox) 30 ml PO Q4H PRN PRN Reason: GI UPSET, NAUSEA Last Admin: 12/15/17 19:08 Dose: 30 ml Aspirin (Ecotrin (Ec)) 325 mg PO DAILY [facility] Atorvastatin Calcium (Lipitor) 10 mg PO QHS [facility] Last Admin: 12/15/17 19:05 Dose: 10 mg Enoxaparin Sodium (Lovenox) 40 mg SQ DAILY [facility] Hydrochlorothiazide (Hctz 12.5mg) 12.5 mg PO DAILY [facility] Metformin HCl (Glucophage Ir) 500 mg PO DAILY [facility] Metoprolol Succinate (Toprol Xl) 50 mg PO QHS [facility] Last Admin: 12/15/17 19:06 Dose: 50 mg Multivitamins/Minerals (Centrum) 1 tab PO DAILY [facility] Pantoprazole Sodium (Protonix) 40 mg PO DAILYAC [facility] Tramadol HCl (Ultram) 100 mg PO Q6HR PRN PRN Reason: PAIN - MILD TO MODERATE (1-7) Physical Exam - Vital Signs Vital Signs: Vital Signs - Last 24 Hrs Temp Pulse Resp BP Pulse Ox 12/15/17 15:45 98.1 F 83 16 138/74 98 - General General Appearance: Alert, Oriented x3, Cooperative, No acute distress - Head Head exam: Normal inspection - Eye Eye exam: Normal appearance, PERRL Pupils: Normal accommodation - ENT ENT exam: Normal exam, Mucous membranes moist, Normal external ear exam, Normal orophraynx, TM's normal bilaterally Ear exam: Normal external inspection. negative: External canal tenderness Nasal Exam: Normal inspection. negative: Discharge, Sinus tenderness Mouth exam: Normal external inspection, Tongue normal Teeth exam: Normal inspection. negative: Dental caries Throat exam: Normal inspection. negative: Tonsillar erythema, Tonsillar exudate - Neck Neck exam: Normal inspection, Full ROM. negative: Tenderness - Respiratory Respiratory exam: Normal lung sounds bilaterally. negative: Respiratory distress - Cardiovascular Cardiovascular Exam: Regular rate, Normal rhythm, Normal heart sounds - GI/Abdominal GI/Abdominal exam: Soft, Normal bowel sounds. negative: Tenderness - Rectal Rectal exam: Deferred - exam: Deferred - Extremities Extremities exam: Normal inspection, Full ROM, Normal capillary refill, Tenderness (left leg post knee surgery and in a dressing) - Back Back exam: Reports: Normal inspection, Full ROM. Denies: Muscle spasm, Rash noted, Tenderness - Neurological Neurological exam: Alert, Normal gait, Oriented X3, Reflexes normal - Psychiatric Psychiatric exam: Normal affect, Normal mood - Skin Skin exam: Dry, Intact, Normal color, Warm Discharge Potential - Discharge Needs Community Services Used Prior to Admission: None Patient Discharge Plan Description: Return Home Community Services Needed at Discharge: Physical Therapy Plan - Swing Bed Certification Initial Certification Due: 12/15/17 14 Day Re-Cert Due: 12/29/17 44 Day Re-Cert Due: 01/28/18 74 Day Re-Cert Due: 02/27/18 - Detailed Diagnosis and Plan (1) History of left knee replacement Current Visit: Yes Status: Acute Base Code: Z96.652 - PRESENCE OF LEFT ARTIFICIAL KNEE JOINT Priority: High Onset Date: ~11/21/17 Comment: left knee replaced at [facility] by Dr. Cervantes (2) Physical deconditioning Current Visit: Yes Status: Acute Base Code: R53.81 - OTHER MALAISE (3) Physical deconditioning Current Visit: Yes Status: Acute Base Code: R53.81 - OTHER MALAISE Onset Date: ~11/21/17 Comment: knee replacement and needs rehab left knee (4) Physical deconditioning Current Visit: Yes Status: Acute Base Code: R53.81 - OTHER MALAISE (5) Physical deconditioning Current Visit: No Status: Acute Base Code: R53.81 - OTHER MALAISE Priority : High (6) Hypertension Current Visit: No Status: Acute Base Code: I10 - ESSENTIAL (PRIMARY) HYPERTENSION Priority: Low (7) Diabetes type 2, controlled Current Visit: No Status: Acute Qualifiers: Diabetes mellitus motor and 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
[2017-12-16] MEDS: ACETAMINOPHEN 500 MG TABLET PO PRN ×2 (03:29→12:44)
[2017-12-16] MEDS: PANTOPRAZOLE SODIUM 40 MG TABLET PO SCH (06:19)
[2017-12-16] MEDS ORDERED: HYDROCHLOROTHIAZIDE 12.5 MG CAPSULE PO SCH (10:00)
[2017-12-16] MEDS: ENOXAPARIN 40 MG/0.4 ML SYR SQ SCH (10:06)
[2017-12-16] MEDS: METFORMIN 500 MG TABLET PO SCH ×2 (10:06→11:56)
[2017-12-16] MEDS: MULTIVITAMINS/MINERALS TABLET PO SCH (10:06)
[2017-12-16] MEDS: ASPIRIN 325 MG TAB ENTERIC-COATED PO SCH (10:06)
--- NOTE | 2017-12-16 10:51 | Rehab Evaluation ---
Patient Information - Patient Information Diagnosis: L knee OA Ordered Treatment: PT Evaluate and Treat Status: Initial Evaluation Surgery: Yes (L TKA) Date of Surgery: 12/13/17 Past Medical/Surgical Hx: PAST MEDICAL/SURGICAL HISTORY Past Surgical History hysterectomy tonsilectomy cholecystectomy 2 navel surgeries incarcerated hernia repair TRHA PMH - Respiratory Hx Respiratory Disorders No PMH - Cardiovascular Hx Cardiovascular Disorders Yes Hx Hypertension Yes PMH - Neuro Hx Neurological Disorders No Hx Seizures No PMH - GI Hx Gastrointestinal Disorders No PMH - Hx Genitourinary Disorders No PMH - Endocrine Hx Endocrine Disorders Yes Hx Diabetes Yes: oral medications Hx Thyroid Disease No PMH - Musculoskeletal Hx Musculoskeletal Disorders Yes Hx Arthritis Yes PMH - Psych Hx Psychiatric Problems No PMH - Hematology/Oncology Hx Hematology/Oncology No Disorders Premorbid Status: Detail (Patient was previously IND with all mobility.) Social History: Detail (Patient currently lives alone in a first floor apartment. She has an elevated toilet, and a walk in shower with a grab bar. She owns a rollator and a cane.) Precautions: [place], Fall, Other (WBAT on L LE.) - Time With Patient Total Time Spent With Patient (Min): 30 Treatment Procedures: Detail (Initial evaluation, and gait training.) Subjective Information - Subjective Information Per Patient (Patient reported pain in her L knee, but did not rate it using the 0-10 scale. She reported it was better after standing and walking. Patient also noted difficulty standing from her bed at home.) Objective Data - Pain Pain Present: Yes - Mental Status Patient Orientation: Oriented x3 - Visual Perception Appears within normal limits for therapeutic activities - ROM Not within normal limits (L knee ROM limited due to status post-surgery. L knee flexion = 77 degrees. R LE ROM was within functional limits.) - Strength/Tone Not within normal limits (L knee strength was limited due to status post- surgery (generally a 3+/5, patient was able to reach end range and hold position ). R LE was globally a 4/5.) - Bed Mobility Needs Assist (Patient was up in chair upon arrival, bed mobility still needs to be assessed.) - Transfers Independent (Patient was IND with sit to stand transfer. SBA for safety. Patient stands up using a standard walker.) - Balance Balance Sitting: Good Balance Standing: Good - Sensation Intact - Gait Detail (Patient ambulated 30' using a front wheeled walker and SBA for safety. WBAT on L LE.) Therapy Assessment - Therapy Assessment Detail (Patient was IND with all mobility and transfers with SBA for safety. Patient experienced one loss of balance after initially standing with standard walker. Patient expressed concerns with going home due to difficulty with sit to stand from her bed. This evaluation was of low complexity. Feel patient will progress well with therapy.) Problem List - Problem List Physical Therapy Problem List: Detail (1) Difficulty standing from sitting on low surfaces. 2) Pain 3) Limited L LE strength 4) Limited L LE ROM 5) Decreased tolerance to ambulation/physical activity) Goals - Goals Physical Therapy Goals: 1) Patient will perform sit to stand from low bed IND. 2) Patient will achieve 90 degrees of L knee flexion. 3) Patient will increase muscle grade by 1/3 bilaterally in all LE motions to increase functional mobility. 4) Patient will ambulate 100' using appropriate AD and supervision for safety Prognosis - Prognosis Good Plan - Plan Physical Therapy Plan: Patient will be 1-2 times a day M-F for gait training, transfer training, and LE exercise.
--- NOTE | 2017-12-16 11:01 | Rehab Evaluation ---
Patient Information - Patient Information Diagnosis: L knee OA Ordered Treatment: OT Evaluate and Treat Status: Initial Evaluation Surgery: Yes (L TKA) Date of Surgery: 12/13/17 Past Medical/Surgical Hx: PAST MEDICAL/SURGICAL HISTORY Past Surgical History hysterectomy tonsilectomy cholecystectomy 2 navel surgeries incarcerated hernia repair TRHA PMH - Respiratory Hx Respiratory Disorders No PMH - Cardiovascular Hx Cardiovascular Disorders Yes Hx Hypertension Yes PMH - Neuro Hx Neurological Disorders No Hx Seizures No PMH - GI Hx Gastrointestinal Disorders No PMH - Hx Genitourinary Disorders No PMH - Endocrine Hx Endocrine Disorders Yes Hx Diabetes Yes: oral medications Hx Thyroid Disease No PMH - Musculoskeletal Hx Musculoskeletal Disorders Yes Hx Arthritis Yes PMH - Psych Hx Psychiatric Problems No PMH - Hematology/Oncology Hx Hematology/Oncology No Disorders Premorbid Status: Detail (Pt. previously used a 4WW with seat for long distance mobility, but preferred to ambulate without a device in the community. She was modified Ind. with I/ADL's, including self-care, meal prep, and driving. Pt. uses a unhairing inspector to assist with laundry, and a sock aid with dressing.) Social History: Detail (Patient currently lives alone in a first floor apartment. She has an elevated toilet, and a walk in shower with a grab bar. She owns a rollator and a cane.) Precautions: [place], Fall - Time With Patient Total Time Spent With Patient (Min): 30 Treatment Procedures: Detail (OT EVAL LOW. Session was concluded with pt. in w/ c with legs elevated, call light and bedside tray within reach, and several family members present.) Subjective Information - Subjective Information Per Patient (hx of at least 4 surgeries on R shoulder, constantly painful.) Objective Data - Pain Pain Present: Yes (0/10 at rest and 8/10 with activity LLE) - Mental Status Patient Orientation: Oriented x3 - Visual Perception Appears within normal limits for therapeutic activities - ROM Not within normal limits (RUE shd abd approx. 90, flex 110, unable to functionally reach behind back and able to reach top of head with compensatory postures but not behind head. All other RUE AROM WFL. LUE shd abd approx. 120, flex 160, and was functionally able to reach behind head and back. All other LUE AROM WFL.) - Strength/Tone Not within normal limits (MMT: RUE shd abd and flex NT d/t lack of AROM and pain. RUE biceps 4/5, triceps 4-/5. LUE biceps 4+/5, triceps 4/5, shd flex 4+/5 , abd 4/5.) - Coordination Appears within normal limits for therapeutic activities (denies difficulty with FMC, clothing fastners.) - Bed Mobility Needs Assist (NT but pt. reports difficulty w/ sit<>stand from EOB) - Transfers Independent (modified Ind. w/ sit<>stand using standard walker from w/c.) - Balance Balance Sitting: Fair (Leans backwards when lifting legs or arms up, but able to Ind. recover LOB.) Balance Standing: Poor (Min A required to recover LOB after sit>stand t/f when taking initial steps with walker.) - Sensation Intact (BUE light touch intact all fingertips) - ADL's/IADL's Detail (Pt. stands in the shower, and does not want to use a chair (had one and threw it out). Pt. was already dressed prior to OT eval and declined d/t company , but reported some difficulty dressing LB to pull up pants after standing up. Pt. also has concern for sit<>stand t/f's from bed at home d/t low height. Educ. in adaptive dressing techniques using unhairing inspector were provided. Pt. verbalized understanding.) Therapy Assessment - Therapy Assessment Detail (Pt. would benefit from OT services to maximize safety and Ind. with self -care routine. Pt. would also benefit from an in-home OT eval after d/c from swing bed program. Pt. stated she would prefer to have home therapy. Pt. has a particular way of performing ADL routine, and stated she prefers not to change, despite potential increased safety/fall risk.) Patient Education - Patient Education Teaching Topic: Equipment Use (with dressing) Response: Verbalize Understanding Teaching Method: Discussion, Demonstration Teaching Recipient: Patient, Family (family and friends present) Barriers To Learning: None Problem List - Problem List Occupational Therapy Problem List: Detail (decreased Ind. with ADL's such as LB dressing and bathing, decreased balance and increased fall risk w/ t/f's from low surfaces, pain limits activity tolerance, impaired BUE strength and AROM) Goals - Goals Occupational Therapy Goals: 1) Demo. modified Ind. with bathing in the shower ( i.e. assess safety and Ind. w/ bathing). 2) Demo. modified Ind. with dressing. 3) Increase activity tolerance to complete typical ADL routine. 4) Pt. will demo. safe t/f from bed or simulated low surface, and/or demo. awareness of potential environmental modifications for home surfaces. Prognosis - Prognosis Good (with pt. participation in recommendations and therapy tx.) Plan - Plan Occupational Therapy Plan: Pt. will be seen 2-4x's per week Mon-Fri during typical rehab business hours until all OT goals are met and/or pt. is d/c from swing bed program. Rehab dept. is closed on .
[2017-12-16] MEDS: METFORMIN ER HCL 500 MG TAB.ER.24H PO SCH (11:10)
--- NOTE | 2017-12-16 16:09 | Physical Therapy Tx Note ---
Physical Therapy Tx Note - Treatment Note Tolerated: Good Total Time Spent With Patient: 30 Physical Therapy Tx Note: Detail (Patient was in bed upon arrival. Patient performed supine to and from sit transfer modified IND with increased time to complete task. The patient required max assist of 2 to scoot up in bed. The patient was educated on L knee exercises including ankle pumps, heel slides, glut sets, quad sets, hamstring sets, and straight leg raises. The patient performed a sit to stand transfer IND with supervision for safety. She ambulated 60' with a front wheeled walker and supervision assist for safety. Patient was left up in wheel chair with call light. The patient's right shoulder pain is increased with bed mobilty and is limiting the patient's ability to complete activities such as scooting up in bed.) Physical Therapy Problem List: Detail (1) Difficulty standing from sitting on low surfaces. 2) Pain 3) Limited L LE strength 4) Limited L LE ROM 5) Decreased tolerance to ambulation/physical activity) Physical Therapy Goals: 1) Patient will perform sit to stand from low bed IND. 2) Patient will achieve 90 degrees of L knee flexion. 3) Patient will increase muscle grade by 1/3 bilaterally in all LE motions to increase functional mobility. 4) Patient will ambulate 100' using appropriate AD and supervision for safety Prognosis: Good Physical Therapy Plan: Patient will be 1-2 times a day M-F for gait training, transfer training, and LE exercise.
[2017-12-16] MEDS: ATORVASTATIN 20 MG TABLET PO SCH (17:30)
[2017-12-16] MEDS: METOPROLOL SUCC 50 MG TABLET PO SCH (17:31)
[2017-12-17] MEDS: PANTOPRAZOLE SODIUM 40 MG TABLET PO SCH (06:23)
[2017-12-17] MEDS: ACETAMINOPHEN 500 MG TABLET PO PRN ×2 (08:12→20:05)
[2017-12-17] MEDS: METFORMIN ER HCL 500 MG TAB.ER.24H PO SCH (08:12)
[2017-12-17] MEDS: HYDROCHLOROTHIAZIDE 12.5 MG CAPSULE PO SCH (08:12)
[2017-12-17] MEDS: MULTIVITAMINS/MINERALS TABLET PO SCH (10:14)
[2017-12-17] MEDS: ENOXAPARIN 40 MG/0.4 ML SYR SQ SCH (10:15)
[2017-12-17] MEDS: ASPIRIN 325 MG TAB ENTERIC-COATED PO SCH (10:20)
[2017-12-17] MEDS: MELOXICAM 7.5 MG TABLET PO SCH (12:05)
--- NOTE | 2017-12-17 12:07 | Physical Therapy Tx Note ---
Physical Therapy Tx Note - Treatment Note Tolerated: Good Total Time Spent With Patient: 45 Physical Therapy Tx Note: Detail (Pt sitting up in wheelchair upon arrival, with Cardior[employer]. Cooperative for therapy. Sit/stand from wheelchair to front- wheeled walker with minimal assist after three attempts. Ambulated from bedside to nrsg station and back to bed (89 feet) w/CGA/SBA. Performed 20 reps of seated marching, 20 reps of seated heel slides, 10 reps B of knee extension, isometric knee flexion, isometric hip adduction, isometric hip abduction. Sit/ stand transfer from bed w/minimal assist with two attempts; ambulated from bedside to end of unit hallway past nrsg station and back to room (114 feet) w/ SBA. SBA for clothing management and transfer onto toilet; minimal assist for sit/stand transfer up from toilet to walker, with three attempts. Ambulated to wheelchair w/SBA. Placed commode over toilet at lowest level to provide elevation to toilet. Discussed height of bed at home and difficulty with getting out of bed. Will provide patient with info regarding possible assistive devices; discussed considering outpatient physical therapy in the future to continue strengthening. Spoke w/nrsg regarding having patient walk with clinical nursing instructor a couple of times/day over weekend. Left pt up in chair with Cardiorobotics; nrsg notified.) Physical Therapy Problem List: Detail (1) Difficulty standing from sitting on low surfaces. 2) Pain 3) Limited L LE strength 4) Limited L LE ROM 5) Decreased tolerance to ambulation/physical activity) Physical Therapy Goals: 1) Patient will perform sit to stand from low bed IND. 2) Patient will achieve 90 degrees of L knee flexion. 3) Patient will increase muscle grade by 1/3 bilaterally in all LE motions to increase functional mobility. 4) Patient will ambulate 100' using appropriate AD and supervision for safety Prognosis: Good Physical Therapy Plan: Patient will be 1-2 times a day M-F for gait training, transfer training, and LE exercise.
[2017-12-17] MEDS: ATORVASTATIN 20 MG TABLET PO SCH (17:25)
[2017-12-17] MEDS: METOPROLOL SUCC 50 MG TABLET PO SCH (17:29)
[2017-12-18] MEDS: PANTOPRAZOLE SODIUM 40 MG TABLET PO SCH (06:19)
[2017-12-18] MEDS: HYDROCHLOROTHIAZIDE 12.5 MG CAPSULE PO SCH (07:56)
[2017-12-18] MEDS: METFORMIN ER HCL 500 MG TAB.ER.24H PO SCH (07:56)
[2017-12-18] MEDS: ENOXAPARIN 40 MG/0.4 ML SYR SQ SCH (09:52)
[2017-12-18] MEDS: ASPIRIN 325 MG TAB ENTERIC-COATED PO SCH (09:52)
[2017-12-18] MEDS: MULTIVITAMINS/MINERALS TABLET PO SCH (09:52)
[2017-12-18] MEDS: MELOXICAM 7.5 MG TABLET PO SCH (09:53)
[2017-12-18] MEDS: ATORVASTATIN 20 MG TABLET PO SCH (17:27)
[2017-12-18] MEDS: METOPROLOL SUCC 50 MG TABLET PO SCH (17:28)
[2017-12-18] MEDS: ACETAMINOPHEN 500 MG TABLET PO PRN (20:18)
[2017-12-19] MEDS: PANTOPRAZOLE SODIUM 40 MG TABLET PO SCH (06:35)
[2017-12-19] MEDS: MULTIVITAMINS/MINERALS TABLET PO SCH ×2 (08:37→12:20)
[2017-12-19] MEDS: MELOXICAM 7.5 MG TABLET PO SCH ×2 (08:37→12:21)
[2017-12-19] MEDS: ASPIRIN 325 MG TAB ENTERIC-COATED PO SCH ×2 (08:37→12:20)
[2017-12-19] MEDS: HYDROCHLOROTHIAZIDE 12.5 MG CAPSULE PO SCH (08:37)
[2017-12-19] MEDS: METFORMIN ER HCL 500 MG TAB.ER.24H PO SCH (08:37)
[2017-12-19] MEDS: ENOXAPARIN 40 MG/0.4 ML SYR SQ SCH ×2 (08:38→12:21)
[2017-12-19] MEDS: ACETAMINOPHEN 500 MG TABLET PO PRN (08:43)
[2017-12-19] MEDS: METOPROLOL SUCC 50 MG TABLET PO SCH (17:06)
[2017-12-19] MEDS: ATORVASTATIN 20 MG TABLET PO SCH (17:07)
[2017-12-20] MEDS: PANTOPRAZOLE SODIUM 40 MG TABLET PO SCH (06:02)
--- NOTE | 2017-12-20 07:35 | Occupational Therapy Tx Note ---
Occupational Therapy Tx Note - Treatment Note Occupational Therapy Treatment Note: Detail (Pt already dressed this morning and reports she was Ind (verified by nursing). Pt reports her only concern is getting off from the toilet. Discussed options, OT will investigate grab bars that will work in pts bathroom.) Occupational Therapy Problem List: Detail (decreased Ind. with ADL's such as LB dressing and bathing, decreased balance and increased fall risk w/ t/f's from low surfaces, pain limits activity tolerance, impaired BUE strength and AROM) Occupational Therapy Goals: 1) Demo. modified Ind. with bathing in the shower ( i.e. assess safety and Ind. w/ bathing). 2) Demo. modified Ind. with dressing. 3) Increase activity tolerance to complete typical ADL routine. 4) Pt. will demo. safe t/f from bed or simulated low surface, and/or demo. awareness of potential environmental modifications for home surfaces. Occupational Therapy Plan: Pt. will be seen 2-4x's per week Mon-Fri during typical rehab business hours until all OT goals are met and/or pt. is d/c from swing bed program. Rehab dept. is closed on .
[2017-12-20] MEDS: METFORMIN ER HCL 500 MG TAB.ER.24H PO SCH (08:18)
[2017-12-20] MEDS: HYDROCHLOROTHIAZIDE 12.5 MG CAPSULE PO SCH (08:18)
[2017-12-20] MEDS: ACETAMINOPHEN 500 MG TABLET PO PRN (09:29)
[2017-12-20] MEDS: MULTIVITAMINS/MINERALS TABLET PO SCH (09:30)
[2017-12-20] MEDS: MELOXICAM 7.5 MG TABLET PO SCH (09:30)
[2017-12-20] MEDS: ENOXAPARIN 40 MG/0.4 ML SYR SQ SCH (09:31)
[2017-12-20] MEDS: ASPIRIN 325 MG TAB ENTERIC-COATED PO SCH (09:31)
--- NOTE | 2017-12-20 14:23 | Physical Therapy Tx Note ---
Physical Therapy Tx Note - Treatment Note Tolerated: Good Total Time Spent With Patient: 20 Physical Therapy Tx Note: Detail (Patient had no complaints of pain. Patient is still concerned with her ability to stand from the toilet. The patient completed a supine to and from sit transfer IND and sit to stand with supervision for safety. Patient completed a toilet transfer IND with the use of both UE on the grab bars. The patient then completed 1x10 reps of glut sets, quad sets, LAQ, ankle pumps, hip ADD, and heel slides. L knee flexion was measured at 82 degrees. Patient's bed mobility has improved, but still requires grab bars when transfering from the toilet.) Physical Therapy Problem List: Detail (1) Difficulty standing from sitting on low surfaces. 2) Pain 3) Limited L LE strength 4) Limited L LE ROM 5) Decreased tolerance to ambulation/physical activity) Physical Therapy Goals: 1) Patient will perform sit to stand from low bed IND. 2) Patient will achieve 90 degrees of L knee flexion. 3) Patient will increase muscle grade by 1/3 bilaterally in all LE motions to increase functional mobility. 4) Patient will ambulate 100' using appropriate AD and supervision for safety (Goal Met) Prognosis: Good Physical Therapy Plan: Patient will be 1-2 times a day M-F for gait training, transfer training, and LE exercise.
[2017-12-20] MEDS: METOPROLOL SUCC 50 MG TABLET PO SCH (17:38)
[2017-12-20] MEDS: ATORVASTATIN 20 MG TABLET PO SCH (17:40)
[2017-12-21] MEDS: PANTOPRAZOLE SODIUM 40 MG TABLET PO SCH (06:16)
[2017-12-21] MEDS: METFORMIN ER HCL 500 MG TAB.ER.24H PO SCH (08:05)
[2017-12-21] MEDS: HYDROCHLOROTHIAZIDE 12.5 MG CAPSULE PO SCH (08:05)
[2017-12-21] MEDS: MELOXICAM 7.5 MG TABLET PO SCH (09:26)
[2017-12-21] MEDS: ASPIRIN 325 MG TAB ENTERIC-COATED PO SCH (09:26)
[2017-12-21] MEDS: MULTIVITAMINS/MINERALS TABLET PO SCH (09:26)
[2017-12-21] MEDS: ENOXAPARIN 40 MG/0.4 ML SYR SQ SCH (09:26)
[2017-12-21] MEDS: ACETAMINOPHEN 500 MG TABLET PO PRN ×2 (09:30→14:15)
--- NOTE | 2017-12-21 11:17 | Rehab Discharge Summary ---
Patient Information - Patient Information Diagnosis: L knee OA Ordered Treatment: PT Evaluate and Treat Surgery: Yes (L TKA) Date of Surgery: 12/13/17 Past Medical/Surgical Hx: PAST MEDICAL/SURGICAL HISTORY Past Surgical History hysterectomy tonsilectomy cholecystectomy 2 navel surgeries incarcerated hernia repair TRHA PMH - Respiratory Hx Respiratory Disorders No PMH - Cardiovascular Hx Cardiovascular Disorders Yes Hx Hypertension Yes PMH - Neuro Hx Neurological Disorders No Hx Seizures No PMH - GI Hx Gastrointestinal Disorders No PMH - Hx Genitourinary Disorders No PMH - Endocrine Hx Endocrine Disorders Yes Hx Diabetes Yes: oral medications Hx Thyroid Disease No PMH - Musculoskeletal Hx Musculoskeletal Disorders Yes Hx Arthritis Yes PMH - Psych Hx Psychiatric Problems No PMH - Hematology/Oncology Hx Hematology/Oncology No Disorders Premorbid Status: Detail (Pt. previously used a 4WW with seat for long distance mobility, but preferred to ambulate without a device in the community. She was modified Ind. with I/ADL's, including self-care, meal prep, and driving. Pt. uses a shop clerk to assist with laundry, and a sock aid with dressing.) Social History: Detail (Patient currently lives alone in a first floor apartment. She has an elevated toilet, and a walk in shower with a grab bar. She owns a rollator and a cane.) Precautions: [place], Fall - Time With Patient Total Time Spent With Patient (Min): 30 Treatment Procedures: Detail (Ther Ex, and Ther Act.) Subjective Information - Subjective Information Per Patient (Patient has no complaints of pain.) Objective Data - Pain Pain Present: No - Mental Status Patient Orientation: Oriented x3 - Visual Perception Appears within normal limits for therapeutic activities - ROM Not within normal limits (Patient L knee ROM is limited due to status post- surgery. L knee flexion 83 degrees, knee extension -2 (lacking 2 degrees from neutral).) - Strength/Tone Not within normal limits (Patient has limited L knee strength due to status post -surgry. Patients R LE strength was measured as follows hip flexion 4/5, knee ext 4+/5, knee flexion 4+/5, ankle DF 4+/5, PF 5/5. Bilateral hip ABD 5/5, hip ADD 4+/5.) - Bed Mobility Independent (Patient is IND with all bed mobility.Patient reports she has difficulty at times with supine to sit depending on her position in bed and R shoulder pain. The patient states she is going to sleep in her lift chair initially at home.) - Transfers Independent (Patient is IND with all transfers. The patient uses 2 hands on grab bar for toilet transfer.) - Balance Balance Sitting: Good Balance Standing: Good - Sensation Intact - Gait Detail (Patient is ambulating IND with the use of a front wheeled walker WBAT on the L LE community distances. The patient refused stairs. She does not have stairs at home.) Therapy Assessment - Therapy Assessment Detail (Patient has progressed well with all mobility and transfers. Patients ROM and strength has improved. Feel patient will continue to progress well with home PT.) Patient Education - Patient Education Teaching Topic: Exercise/Activity (The patient was independent with HEP of TKA exercises.) Response: Return Demonstration Teaching Method: Demonstration, Handout Teaching Recipient: Patient Barriers To Learning: Age Related Problem List - Problem List Physical Therapy Problem List: Detail (1) Difficulty standing from sitting on low surfaces. 2) Pain 3) Limited L LE strength 4) Limited L LE ROM 5) Decreased tolerance to ambulation/physical activity) Occupational Therapy Problem List: Detail (decreased Ind. with ADL's such as LB dressing and bathing, decreased balance and increased fall risk w/ t/f's from low surfaces, pain limits activity tolerance, impaired BUE strength and AROM) Goals - Goals Physical Therapy Goals: 1) Patient will perform sit to stand from low bed IND ( Goal Met). 2) Patient will achieve 90 degrees of L knee flexion (Goal Not Met) . 3) Patient will increase muscle grade by 1/3 bilaterally in all LE motions to increase functional mobility (Goal Partially Met). 4) Patient will ambulate 100' using appropriate AD and supervision for safety (Goal Met) Occupational Therapy Goals: 1) Demo. modified Ind. with bathing in the shower ( i.e. assess safety and Ind. w/ bathing). 2) Demo. modified Ind. with dressing. 3) Increase activity tolerance to complete typical ADL routine. 4) Pt. will demo. safe t/f from bed or simulated low surface, and/or demo. awareness of potential environmental modifications for home surfaces. Prognosis - Prognosis Good Plan - Plan Physical Therapy Plan: Patient will be discharged to home PT. Occupational Therapy Plan: Pt. will be seen 2-4x's per week Mon-Fri during typical rehab business hours until all OT goals are met and/or pt. is d/c from swing bed program. Rehab dept. is closed on .
--- NOTE | 2017-12-21 15:02 | Occupational Therapy Tx Note ---
Occupational Therapy Tx Note - Treatment Note Tolerated: Good Total Time Spent With Patient: 40 (ther activity) Occupational Therapy Treatment Note: Detail (S: Pt resting in chair. O: Pt reports she is Ind with dressing and bathing and does not want to complete this as part of her OT. Sit to stand and amb to rehab gym 500 feet plus with 2 wheeled walker Indly. Attempted sit to stand multiple times from standard height chair using modified techniques and 4 wheeled walker for support. Pt was unable to Indly achieve sit to stand without use of arm rests. Discussed options for home modifications, pt most agreeable to trying a commode with modifications for toileting hygiene. Pt amb back to room with 4 wheeled walker Indly. A: Pt will likely need commode for toileting at home as she needs arm rests for sit to stand. chronic disease manager was notified and she will follow up.) Occupational Therapy Problem List: Detail (decreased Ind. with ADL's such as LB dressing and bathing, decreased balance and increased fall risk w/ t/f's from low surfaces, pain limits activity tolerance, impaired BUE strength and AROM) Occupational Therapy Goals: 1) Demo. modified Ind. with bathing in the shower ( i.e. assess safety and Ind. w/ bathing). 2) Demo. modified Ind. with dressing. 3) Increase activity tolerance to complete typical ADL routine. 4) Pt. will demo. safe t/f from bed or simulated low surface, and/or demo. awareness of potential environmental modifications for home surfaces. Prognosis: Good Occupational Therapy Plan: Pt. will be seen 2-4x's per week Mon-Fri during typical rehab business hours until all OT goals are met and/or pt. is d/c from swing bed program. Rehab dept. is closed on .
[2017-12-21] MEDS ORDERED: ATORVASTATIN 20 MG TABLET PO SCH (17:00)
[2017-12-21] MEDS: METOPROLOL SUCC 50 MG TABLET PO SCH (18:22)
[2017-12-22] MEDS: PANTOPRAZOLE SODIUM 40 MG TABLET PO SCH (06:06)
--- NOTE | 2017-12-22 08:24 | Discharge Summary ---
Providers Discharge Summary Date: 12/22/17 Date of admission: 12/15/17 13:09 Expected Date of Discharge: 12/22/17 Attending physician: Lamin Mclain Primary care physician: Ismael Griffiths Physical Exam - Vital Signs Vital Signs: Vital Signs - Last 24 Hrs Temp Pulse Resp BP Pulse Ox 12/21/17 20:00 97.2 F L 68 18 146/74 97 - General General Appearance: Alert, Oriented x3, Cooperative, No acute distress - Head Head exam: Normal inspection - Eye Eye exam: Normal appearance, PERRL Pupils: Normal accommodation - ENT ENT exam: Normal exam, Mucous membranes moist, Normal external ear exam, Normal orophraynx, TM's normal bilaterally Ear exam: Normal external inspection. negative: External canal tenderness Nasal Exam: Normal inspection. negative: Discharge, Sinus tenderness Mouth exam: Normal external inspection, Tongue normal Teeth exam: Normal inspection. negative: Dental caries Throat exam: Normal inspection. negative: Tonsillar erythema, Tonsillar exudate - Neck Neck exam: Normal inspection, Full ROM. negative: Tenderness - Respiratory Respiratory exam: Normal lung sounds bilaterally. negative: Respiratory distress - Cardiovascular Cardiovascular Exam: Regular rate, Normal rhythm, Normal heart sounds - GI/Abdominal GI/Abdominal exam: Soft, Normal bowel sounds. negative: Tenderness - Rectal Rectal exam: Deferred - exam: Deferred - Extremities Extremities exam: Normal inspection, Full ROM, Normal capillary refill, Tenderness (left leg post knee surgery and in a dressing) - Back Back exam: Reports: Normal inspection, Full ROM. Denies: Muscle spasm, Rash noted, Tenderness - Neurological Neurological exam: Alert, Normal gait, Oriented X3, Reflexes normal - Psychiatric Psychiatric exam: Normal affect, Normal mood - Skin Skin exam: Dry, Intact, Normal color, Warm Hospitalization - Hospitalization Admission Diagnosis: LTKA - Problem List (1) History of left knee replacement Current Visit: Yes Status: Acute Base Code: Z96.652 - PRESENCE OF LEFT ARTIFICIAL KNEE JOINT Onset Date: ~11/21/17 Comment: left knee replaced at [facility] by Dr. Cervantes (2) Physical deconditioning Current Visit: Yes Status: Acute Base Code: R53.81 - OTHER MALAISE (3) Physical deconditioning Current Visit: Yes Status: Acute Base Code: R53.81 - OTHER MALAISE Onset Date: ~11/21/17 Comment: knee replacement and needs rehab left knee (4) Physical deconditioning Current Visit: Yes Status: Acute Base Code: R53.81 - OTHER MALAISE (5) Physical deconditioning Current Visit: No Status: Acute Base Code: R53.81 - OTHER MALAISE (6) Hypertension Current Visit: No Status: Acute Base Code: I10 - ESSENTIAL (PRIMARY) HYPERTENSION (7) Diabetes type 2, controlled Current Visit: No Status: Acute Discharge Diagnosis: Diabetes mellitus skilled nursing insulin use: without terminal operations supervisor use Diabetes mellitus complication status: without complication Qualified Code(s): E11.9 - Type 2 diabetes mellitus without complications Base Code: E11.9 - TYPE 2 DIABETES MELLITUS WITHOUT COMPLICATIONS (8) GERD (gastroesophageal reflux disease) Current Visit: Yes Status: Acute Base Code: K21.9 - GASTRO-ESOPHAGEAL REFLUX DISEASE WITHOUT ESOPHAGITIS - Disposition rehab to be able to go home. Patient is doing well and going home with home physical therapy. Follow up with Dr. Cervantes as scheduled in jan. follow up with Dr. Griffiths as scheduled - Hospitalization Course Disposition: Home, Self-Care Reason For Discharge/Transfer: Medical Stability Hospital Course: patient did well and meets as the requirements for going home. Condition at Discharge: (1) Good Discharge Diagnosis: rebab for left knee replacement Discharge Medications - Discharge Medications Prescriptions: Meloxicam [Mobic] 15 mg PO DAILY #30 tablet Home Medications: Ambulatory Orders Metformin HCl [Metformin HCl ER] 500 mg PO DAILYAC 04/14/15 [Last Taken 1 Day Ago ~08/21/15] Metoprolol Succinate [Toprol Xl] 25 mg PO BIDAC tab 04/14/15 [Last Taken 1 Day Ago ~08/21/15] Simvastatin 10 mg PO QPM tab 04/14/15 [Last Taken 1 Day Ago ~08/21/15] Multivitamin [Multi-Vitamin Daily] 1 each PO QPM 08/22/15 [Last Taken 1 Day Ago ~08/21/15] Hydrochlorothiazide [Hctz] 12.5 mg PO DAILY #30 cap 03/31/17 [Last Taken Unknown ] Potassium Chloride 10 meq PO DAILY #30 tablet.er 03/31/17 [Last Taken Unknown] Acetaminophen [Tylenol 500Mg Tab] 1,000 mg PO Q6H PRN tablet 12/22/17 [Last Taken Unknown] Meloxicam [Mobic] 15 mg PO DAILY #30 tablet 12/22/17 [Last Taken Unknown] Discharge Plan - Discharge Instructions Activity at Discharge: Increase Activity as Tolerated Dressing Change: As needed Additional Instructions: Dr. Billy Bee. Feb 03 at 11:45AM Quality Measures - Quality Measures Quality Measures: Advance Directives, Documentation of Current Medications in Medical Record, Elder Maltreatment Screen and Follow-Up Plan, Screening for High Blood Pressure and F/U Documented - Current Medications Quality Measure: Measure #130: Documentation of Current Medications Documentation of Current Medications: <Current Medications Documented/Reviewed> [G6992] - Blood Pressure Screening Quality Measure: Screening for High Blood Pressure and Follow-Up Documented Does Patient Have Any of the Following: Active Dx of HTN Blood Pressure Classification: Pre-Hypertensive BP Reading Systolic Measurement: 121 Diastolic Measurement: 68 Screening for High Blood Pressure: Patient Exclusion, Hx of HTN [G9744] - Advance Directives Quality Measure: Measure #47: Care Plan Advance Directives Established: Yes Advance Directives Information Provided To Patient: No Advance Directives on File: Yes Living Will: No Power of Forensic Analyst: Yes Power of Forensic Analyst Name: KATTY YEN Advance Care Planning: <Care Plan/Decision Maker Documented; Discussed & Documented> [8983F] - Elder Abuse Suspicion Index Screening: Elder Abuse Suspicion Index Screening Rely on people for bathing, dressing, shopping, banking, etc: No Prevented from getting food, clothes, medication, etc: No Made to feel shamed or threatened by someone: No Forced to sign papers or use money against will: No Feel afraid, touched in ways not wanted or hurt physically: No Poor eye contact, withdrawn, malnourished, cuts or bruises: No Screening Result: Negative result EASI Reference Information: Deny RICO, Pancho C, Yahaira D, Yanet Morales.Development and validation of a tool to assist physicians identification of elder abuse: The Elder Abuse Suspicion Index (EASI ). Journal of Elder Abuse and Neglect, 2008; 20 (3): 276-300. - Elder Maltreatment Screen Quality Measures: Elder Maltreatment Screen and Follow-Up Plan Elder Maltreatment Screen: <Negative, No Follow-Up Plan Required> [G8734]
[2017-12-22] MEDS: METFORMIN ER HCL 500 MG TAB.ER.24H PO SCH (08:41)
[2017-12-22] MEDS: HYDROCHLOROTHIAZIDE 12.5 MG CAPSULE PO SCH (08:41)
[2017-12-22] MEDS: ASPIRIN 325 MG TAB ENTERIC-COATED PO SCH (09:11)
[2017-12-22] MEDS: ENOXAPARIN 40 MG/0.4 ML SYR SQ SCH (09:11)
[2017-12-22] MEDS: MELOXICAM 7.5 MG TABLET PO SCH (09:11)
[2017-12-22] MEDS: MULTIVITAMINS/MINERALS TABLET PO SCH (09:11)
[2017-12-22] MEDS: ACETAMINOPHEN 500 MG TABLET PO PRN (09:12)
--- NOTE | 2017-12-23 10:20 | Rehab Discharge Summary ---
Patient Information - Patient Information Diagnosis: L knee OA Ordered Treatment: OT Evaluate and Treat Surgery: Yes (L TKA) Date of Surgery: 12/13/17 Past Medical/Surgical Hx: PAST MEDICAL/SURGICAL HISTORY Past Surgical History hysterectomy tonsilectomy cholecystectomy 2 navel surgeries incarcerated hernia repair TRHA PMH - Respiratory Hx Respiratory Disorders No PMH - Cardiovascular Hx Cardiovascular Disorders Yes Hx Hypertension Yes PMH - Neuro Hx Neurological Disorders No Hx Seizures No PMH - GI Hx Gastrointestinal Disorders No PMH - Hx Genitourinary Disorders No PMH - Endocrine Hx Endocrine Disorders Yes Hx Diabetes Yes: oral medications Hx Thyroid Disease No PMH - Musculoskeletal Hx Musculoskeletal Disorders Yes Hx Arthritis Yes PMH - Psych Hx Psychiatric Problems No PMH - Hematology/Oncology Hx Hematology/Oncology No Disorders Premorbid Status: Detail (Pt. previously used a 4WW with seat for long distance mobility, but preferred to ambulate without a device in the community. She was modified Ind. with I/ADL's, including self-care, meal prep, and driving. Pt. uses a metal pickling equipment operator to assist with laundry, and a sock aid with dressing.) Social History: Detail (Patient currently lives alone in a first floor apartment. She has an elevated toilet, and a walk in shower with a grab bar. She owns a rollator and a cane.) Precautions: [place], Fall Subjective Information - Subjective Information Per Patient Objective Data - Pain Pain Present: Yes (Pt continues with knee pain with movement.) - Mental Status Patient Orientation: Oriented x3 - Visual Perception Appears within normal limits for therapeutic activities - ROM Not within normal limits (UE ROM - Unchanged from initial evaluation) - Strength/Tone Not within normal limits (UE strength unchanged from initial evaluation) - Coordination Appears within normal limits for therapeutic activities - Bed Mobility Independent (Per patient report) - Transfers Independent (Ind with sit to stand from elevated surfaces, pt continues with difficulty completing sit to stand from lower surfaces.) - Balance Balance Sitting: Good Balance Standing: Good - Sensation Intact - Gait Detail (Pt ambulating long distances with 2 wheeled walker.) - ADL's/IADL's Detail (Not formally assessed per pt request. She reports Ind with all self care activities.) Therapy Assessment - Therapy Assessment Detail (Pt is reportedly Ind with all ADLs.) Problem List - Problem List Physical Therapy Problem List: Detail (1) Difficulty standing from sitting on low surfaces. 2) Pain 3) Limited L LE strength 4) Limited L LE ROM 5) Decreased tolerance to ambulation/physical activity) Occupational Therapy Problem List: Detail (decreased Ind. with ADL's such as LB dressing and bathing, decreased balance and increased fall risk w/ t/f's from low surfaces, pain limits activity tolerance, impaired BUE strength and AROM) Goals - Goals Physical Therapy Goals: 1) Patient will perform sit to stand from low bed IND ( Goal Met). 2) Patient will achieve 90 degrees of L knee flexion (Goal Not Met) . 3) Patient will increase muscle grade by 1/3 bilaterally in all LE motions to increase functional mobility (Goal Partially Met). 4) Patient will ambulate 100' using appropriate AD and supervision for safety (Goal Met) Occupational Therapy Goals: Goals partially met: 1) Demo. modified Ind. with bathing in the shower (i.e. assess safety and Ind. w/ bathing). 2) Demo. modified Ind. with dressing. 3) Increase activity tolerance to complete typical ADL routine. 4) Pt. will demo. safe t/f from bed or simulated low surface, and/or demo. awareness of potential environmental modifications for home surfaces. Prognosis - Prognosis Good Plan - Plan Physical Therapy Plan: Patient will be discharged to home PT. Occupational Therapy Plan: Pt discharged home with home OT.
== END 2017-12-22 10:20 | disposition home or self-care (01) | DRG 948 ==
LOC: MEDSURG 12-15 13:09
PROVIDERS: ADMIT Emergency Medicine; ATTEND Emergency Medicine
DX: R53.81 Other malaise (principal); Z96.652 Presence of left artificial knee joint; I10 Essential (primary) hypertension; E11.9 Type 2 diabetes mellitus without complications; E78.00 Pure hypercholesterolemia, unspecified; K21.9 Gastro-esophageal reflux disease without esophagitis; M19.90 Unspecified osteoarthritis, unspecified site; Z96.641 Presence of right artificial hip joint
CPT/HCPCS: 97110; 97530; 99306; 99309; 99316; J1650

== ENCOUNTER 2019-04-15 18:30 | Emergency (ER) | payer MEDICARE ==
--- NOTE | 2019-04-15 19:15 | Emergency Department Record ---
History of Present Illness - General Chief Complaint: Hypertension Stated Complaint: HIGH BLOOD PRESSURE Time Seen by Provider: 04/15/19 19:09 Source: Patient Mode of Arrival: Ambulatory Limitations: No limitations - History of Present Illness Initial Comments: 78 yo female presents to ED for evaluation of elevated blood pressure this evening. Patient reports that she took her [place] this evening 2 hours ago as scheduled, but reports that she has been under a lot of stress for the past several weeks. Patient reports mild headache symptoms, denies numbness, tingling, weakness, or chest pain symptoms. Patient denies history of renal dysfunction as well. MD Complaint: Other Onset/Timin -: Days(s) Timing: Unsure Description: Other History of Same: No History of Trauma: No Severity: Mild Improves With: Nothing Worsens With: Nothing Associated Symptoms: Denies other symptoms - [place] Coma Scale Eye Response: (4) Open spontaneously Motor Response: (6) Obeys commands Verbal Response: (5) Oriented [place] Total: 15 - Related Data Home Medications Medication Instructions Recorded Confirmed Last Taken Vitamin E Mixed [Vitamin E] 1,000 unit PO DAILY 04/15/19 04/15/19 Unknown Previous Rx's Medication Instructions Recorded Hydrochlorothiazide [Hctz] 12.5 mg PO DAILY #30 cap 03/31/17 Meloxicam [Mobic] 15 mg PO DAILY #30 tablet 12/22/17 Allergies Allergy/AdvReac Type Severity Reaction Status Date / Time Penicillins Allergy Intermediate PT UNSURE Verified 08/22/15 16:04 OF REACTION Tetracyclines Allergy Intermediate ALTERED Verified 08/22/15 16:04 MENTAL STATUS lisinopril Allergy SWELLING Verified 08/22/15 16:04 OF THE LIPS pentazocine lactate Allergy "my Verified 08/22/15 16:04 [From [place]win] eyeballs went around in my head" sulfamethoxazole Allergy Unverified 04/28/17 12:10 [From Bactrim] trimethoprim [From Bactrim] Allergy Unverified 04/28/17 12:10 Travel Screening - Travel/Exposure Within Last 30 Days Have you traveled within the last 30 days?: No Review of Systems Constitutional: Denies: Chills, Fever, Malaise, Night sweats Eyes: Denies: Eye discharge, Eye pain ENT: Denies: Congestion, Ear pain, Epistaxis Respiratory: Denies: Cough, Dyspnea Cardiovascular: Denies: Chest pain, Dyspnea on exertion Endocrine: Denies: Fatigue, Heat or cold intolerance Gastrointestinal: Denies: Abdominal pain, Nausea, Vomiting Genitourinary: Denies: Incontinence, Retention Musculoskeletal: Denies: Arthralgia, Back pain Skin: Denies: Bruising, Change in color Neurological: Reports: Headache. Denies: Abnormal gait, Confusion, Seizure Psychiatric: Denies: Anxiety Hematological/Lymphatic: Denies: Anemia, Blood Clots Past Medical History - SOCIAL HISTORY Smoking Status: Never smoker - RESPIRATORY Hx Respiratory Disorders: No - CARDIOVASCULAR Hx Cardio Disorders: Yes Hx Hypertension: Yes - NEURO Hx Neuro Disorders: No Hx Seizures: No - GI Hx GI Disorders: No - Hx Genitourinary Disorders: No - ENDOCRINE Hx Endocrine Disorders: Yes Hx Diabetes: Yes (oral medications) - MUSCULOSKELETAL Hx Musculoskeletal Disorders: Yes Hx Arthritis: Yes - PSYCH Hx Psych Problems: No - HEMATOLOGY/ONCOLOGY Hx Hematology/Oncology Disorders: No Family Medical History Any Significant Family History?: No Family Hx Comment (NOT TO BE USED IN PLACE OF ITEMS BELOW): "old age" Physical Exam - General General Appearance: Alert, Oriented x3, Cooperative, No acute distress Limitations: No limitations - Head Head exam: Atraumatic, Normocephalic, Normal inspection Head exam detail: negative: Abrasion, Contusion, Soni's sign, General tenderness, Hematoma, Laceration - Eye Eye exam: Normal appearance. negative: Conjunctival injection, Periorbital swelling, Periorbital tenderness, Scleral icterus - ENT Ear exam: negative: Auricular hematoma, Auricular trauma Nasal Exam: negative: Active bleeding, Discharge, Dried blood, Foreign body Mouth exam: negative: Drooling, Laceration, Muffled voice, Tongue elevation - Neck Neck exam: Normal inspection. negative: Meningismus, Tenderness - Respiratory Respiratory exam: Normal lung sounds bilaterally. negative: Rales, Respiratory distress, Rhonchi, Stridor - Cardiovascular Cardiovascular Exam: Regular rate, Normal rhythm, Normal heart sounds - GI/Abdominal GI/Abdominal exam: Soft. negative: Rebound, Rigid, Tenderness - Rectal Rectal exam: Deferred - exam: Deferred - Extremities Extremities exam: Normal inspection. negative: Pedal edema, Tenderness - Back Back exam: Denies: CVA tenderness (R), CVA tenderness (L) - Neurological Neurological exam: Alert, Normal gait, Oriented X3 - Psychiatric Psychiatric exam: Normal affect, Normal mood - Skin Skin exam: Normal color. negative: Abrasion Type of lesion: negative: abrasion Course Vital Signs 04/15/19 18:57 Temperature 98.1 F Pulse Rate 73 Respiratory 20 Rate Blood Pressure 202/106 Pulse Ox 95 - Reevaluation(s) Reevaluation #1: 04/15/19 19:55 Laboratory studies were reviewed and appear grossly unremarkable for an acute process. Patient's repeat BP 170/90 mmHg, labs are grossly unremarkable. Patient appears stable for discharge with instructions to follow-up with Dr. Griffiths in 3-5 days for further evaluation of her elevated BP symptoms. Medical Decision Making - Lab Data Result diagrams: 04/15/19 19:20 04/15/19 19:20 Disposition Disposition: Discharge Clinical Impression: Hypertension Qualifiers: Hypertension type: unspecified Qualified Code(s): I10 - Essential (primary) hypertension Disposition: Home, Self-Care Condition: (2) Stable Instructions: Hypertension (ED) Additional Instructions: Return to ED if your symptoms worsen or if you have any concerns. Follow-up with your family doctor in 3-5 days as directed. Forms: Patient Portal Access Time of Disposition: 20:06 Quality - Quality Measures Quality Measures: N/A - Blood Pressure Screening Does Patient Have Any of the Following: Active Dx of HTN Blood Pressure Classification: Hypertensive Reading Systolic Measurement: 202 Diastolic Measurement: 106 Screening for High Blood Pressure: Patient Exclusion, Hx of HTN [G9744]
[2019-04-15 19:30] LABS: ABSOLUTE NEUTROPHIL COUNT 5.78; BASO % 0.4 % (0-6); EOS % 1.6 % (0-6); GRAN % 76.1 % (47-80); HEMATOCRIT 45.9 % (35.0-47.0); HEMOGLOBIN 14.7 gm/dl (11.6-16.0); LYMPH % 14.9 % (16-45); MEAN CELL VOLUME 96.4 fl (81-97); MEAN CORPUSCULAR HEMOGLOBIN 30.9 pg (27-33); MEAN PLATELET VOLUME 11.1 fl (7.4-10.4); PLATELET COUNT 203 K/uL (130-400); RED BLOOD COUNT 4.76 M/uL (3.80-5.40); RED CELL DISTRIBUTION WIDTH 13.4 % (11.5-14.5); WHITE BLOOD COUNT W/O DIFF 7.6 K/uL (4.2-12.2)
[2019-04-15 19:45] LABS: BLOOD UREA NITROGEN 16 mg/dL (8-23); CREATININE 0.5 mg/dL (0.5-0.9); EST GLOMERULAR FILTRATION RATE > 60 mL/min
[2019-04-15 19:48] LABS: GLUCOSE,RANDOM 118 mg/dL (74-109)
[2019-04-15 19:50] LABS: ALT/SGPT 22 U/L (<33); AST/SGOT 22 U/L (10.0-35.0)
[2019-04-15 19:51] LABS: ALB/GLOB RATIO 1.4 (1.1-1.8); ALBUMIN 4.1 g/dL (4.0-5.0); ALKALINE PHOSPHATASE 102 U/L (35-104)
== END 2019-04-15 20:18 | disposition home or self-care (01) ==
LOC: ER 18:30
DX: I10 Essential (primary) hypertension (principal); R51 Headache; E11.9 Type 2 diabetes mellitus without complications; Z79.84 Long term (current) use of oral hypoglycemic drugs
CPT/HCPCS: 80053; 85025; 99284